=== PATIENT | male | born 1970 | race American Indian/Alaskan Native ===

== ENCOUNTER 2017-02-04 19:15 | Inpatient (IN) | payer OTHER ==
[2017-02-04 19:26] LABS: Basophils % (Auto) 0.3 % (0.0-1.8); Eosinophils % (Auto) 3.9 % (0.0-4.3); Hematocrit 34.3 % (35.5-45.6); Hemoglobin 10.8 gm/dl (11.8-15.2); Mean Corpuscular HGB Conc 32 % (32-34); Mean Corpuscular Volume 74 fl (84-94); Platelet Count 268 K/mm3 (140-440); Red Blood Count 4.63 M/mm3 (3.65-5.03); Red Cell Distribution Width 14.1 % (13.2-15.2)
[2017-02-04 19:28] LABS: Mean Corpuscular Hemoglobin 23 pg (28-32)
[2017-02-04 19:39] LABS: INR 1.08 (0.87-1.13); Partial Thromboplastin Time 32.8 Sec. (24.2-36.6)
--- NOTE | 2017-02-04 19:43 | Cat Scan Report ---
FINAL REPORT PROCEDURE: CT HEAD/BRAIN WO CON TECHNIQUE: Computerized tomography of the head was performed without contrast material. HISTORY: neuro deficits \T\lt; 6hrs or sx present upon awakening, prior intracranial hemorrhage COMPARISON: Head CT dated May 09, 2016 FINDINGS: Visualized portions of the paranasal sinuses and mastoid air cells are clear. No calvarial fracture is seen. Mild hyperdensity is seen in the right thalamus, in the region of prior hemorrhage. The density measurements suggest it is more likely calcification rather than hemorrhage. Subacute to chronic lacunar infarcts are seen in the basal ganglia and left thalamus. Cerebral ventricles are normal in size. No mass effect is seen. IMPRESSION: Likely idiopathic calcification is seen in the region of prior right thalamic hemorrhage. This appears too dense to be acute hemorrhage. Subacute to chronic small vessel ischemic changes in the brain have worsened since prior study. Critical results were discussed with Dr. Harper at 7:35 p.m. Eastern time on February 04, 2017.
[2017-02-04 20:03] LABS: Anion Gap 24 mmol/L; BUN/Creatinine Ratio 17.14; Blood Urea Nitrogen 12 mg/dL (9-20); Calcium 9.9 mg/dL (8.4-10.2); Carbon Dioxide 21 mmol/L (22-30); Chloride 98.6 mmol/L (98-107); Glucose 75 mg/dL (75-100); Potassium 3.3 mmol/L (3.6-5.0); Sodium 140 mmol/L (137-145)
[2017-02-04 20:18] LABS: Cholesterol 190 mg/dL (50-199); HDL Cholesterol 43 mg/dL (40-59); LDL Cholesterol,Direct 127 mg/dL (50-130); Triglycerides 100 mg/dL (2-149)
--- NOTE | 2017-02-04 20:57 | Admit Criteria Form ---
Admission Criteria Documentation: STROKE: HEMORRHAGIC Clinical Indications for Admission to Inpatient Care (Place 'X' for any and all applicable criteria): Admission is indicated for ANY ONE of the following(1)(2)(3)(4): [X ]I. Acute hemorrhagic (eg, intracerebral) stroke Extended stay beyond goal length of stay may be needed for(1)(2)(6) [ ]a) Surgical intervention (9) [ ]b) Major deficit [ ]c) Increased intracranial pressure [ ]d) Hydrocephalus [ ]e) Seizures [ ]f) Venous thromboembolism [ ]g) Severe electrolyte abnormality (eg, hypernatremia, hyponatremia) [ ]h) Hospital-acquired infection (eg, urinary tract infection, pneumonia) [ ]i) Comorbidities (heart failure, renal failure) The original [facility] content created by [email or web address] has been revised. The portions of the content which have been revised are identified through the use of italic text or in bold, and [facility] has neither reviewed nor approved the modified material. All other unmodified content is copyright [facility] [employer]. Please see references footnoted in the original [facility] [employer] edition 2016 Admission Criteria Met: Yes
[2017-02-04] MEDS ORDERED: REGLAN IV ONE (21:43)
[2017-02-04] MEDS ORDERED: APRESOLINE IV ONE ×2 (21:43→22:42)
--- NOTE | 2017-02-04 21:43 | Emergency Department Report ---
ED General Adult HPI - General Chief complaint: Neuro Symptoms/Deficit Stated complaint: NUMBNESS/LEFT SIDED Time Seen by Provider: 02/04/17 19:37 Source: patient, EMS, RN notes reviewed, old records reviewed Mode of arrival: Stretcher Limitations: Physical Limitation - History of Present Illness Initial comments: This is a 46-year-old male. He is previously unknown to me. Past medical history includes hemorrhagic right-sided stroke, residual left- sided deficits, ICD, status post temporary tracheostomy PEG tube, chronic sacral ulcer, hypertension. The patient presents to the ER with a complaint of left-sided numbness, possible weakness. It was initially presented that the patient endorses symptoms as being one hour and onset prior to arrival to the ER. Therefore, a code stroke was emergently called. When I went back to reevaluate the patient, he then indicated that it was not one hour prior to presentation, but rather the symptoms were present upon waking up, and he describes it as left-sided numbness, possible weakness, he is not certain. Given the patient has a history of hemorrhagic stroke, and could not give exact timeline for symptoms, TPA is contraindicated. The patient did complain of mild headache, however he denied neck pain, chest pain, abdominal pain, shortness of breath, denied irritative and obstructive urinary symptoms. A noncontrast CT scan of the brain suggested chronic calcification in the right thalamus, very small possibility of a small bleed. The CT scan was transmitted to a consulting neurosurgeon, Dr. Feng, who personally reviewed the CT scan, and was of the opinion that the CT scan findings were most likely secondary to calcification. He agreed to see the patient if indeed the patient was found to have a bleed, did recommend an MRI. The patient was found to be markedly hypertensive with a blood pressure in the 200s, and also complained of a headache. He was given Reglan for headache, and hydralazine for blood pressure. Nonspecific troponin leak is appreciated, patient not having chest pain, given possibility of bleed, aspirin is therefore contraindicated. The case was presented to the Hospital physician, Dr. Jaquez, who accepted the patient to his service for hypertensive urgency, subacute stroke/TIA, possible hemorrhagic CVA. -: Gradual Location: left, upper extremity, lower extremity Severity scale (0 -10): 0 Consistency: constant Improves with: none Worsens with: none Associated Symptoms: weakness. denies: confusion, chest pain, cough, diaphoresis, fever/chills - Related Data Home Medications Medication Instructions Recorded Confirmed Last Taken Clonidine 0.1 mg PO Q8HR 02/04/17 02/04/17 Unknown Previous Rx's Medication Instructions Recorded Last Taken Type Aspirin EC [Aspirin Enteric Coated 81 mg PO QDAY #30 tablet.dr 11/19/16 Unknown Rx TAB] Bisacodyl [Dulcolax suppos] 10 mg [place] QDAY PRN #20 supp.rect 11/19/16 Unknown Rx Docusate Sodium [Colace CAP] 100 mg PO BID #60 capsule 11/19/16 Unknown Rx Metoprolol Tartrate [Lopressor] 100 mg PO BID #120 tablet 11/19/16 Unknown Rx Modafinil [Provigil] 100 mg PO QAM #30 tablet 11/19/16 Unknown Rx Sennosides Oral Liqd [Senokot] 17.6 mg PO Q12HR PRN #30 oral.liqd 11/19/16 Unknown Rx hydrALAZINE [Apresoline TAB] 100 mg PO TID #90 tab 11/19/16 Unknown Rx Allergies Allergy/AdvReac Type Severity Reaction Status Date / Time No Known Allergies Allergy Verified 02/04/17 19:47 ED Review of Systems ROS: Stated complaint: NUMBNESS/LEFT SIDED Other details as noted in HPI Constitutional: denies: fever Eyes: denies: vision change ENT: denies: epistaxis Respiratory: denies: cough Cardiovascular: denies: chest pain Gastrointestinal: denies: abdominal pain Genitourinary: denies: urgency Musculoskeletal: other (chronic sacral ulcer) Skin: lesions Neurological: weakness, numbness Psychiatric: as per HPI ED Past Medical Hx - Past Medical History Previous Medical History?: Yes Hx Hypertension: Yes Hx CVA: Yes Hx Heart Attack/AMI: No Hx Congestive Heart Failure: No Hx Diabetes: Yes Hx Deep Vein Thrombosis: No Hx Pulmonary Embolism: No Hx Liver Disease: No Hx Renal Disease: No Hx Sickle Cell Disease: No Hx Arthritis: No Hx Seizures: No Hx Kidney Stones: No Hx Asthma: No Hx COPD: No Hx Tuberculosis: No Hx Dementia: No Hx HIV: No Additional medical history: prior tracheotomy; ulcer buttock - Surgical History Past Surgical History?: Yes Hx Coronary Stent: No Hx Open Heart Surgery: No Hx Pacemaker: Yes Hx Internal Defibrillator: No Hx Cholecystectomy: No Hx Appendectomy: No Hx Breast Surgery: No - Social History Smoking Status: Never Smoker - Medications Home Medications: Home Medications Medication Instructions Recorded Confirmed Last Taken Type Aspirin EC [Aspirin Enteric Coated 81 mg PO QDAY #30 tablet.dr 11/19/16 Unknown Rx TAB] Bisacodyl [Dulcolax suppos] 10 mg [place] QDAY PRN #20 supp.rect 11/19/16 02/04/17 Unknown Rx Docusate Sodium [Colace CAP] 100 mg PO BID #60 capsule 11/19/16 02/04/17 Unknown Rx Metoprolol Tartrate [Lopressor] 100 mg PO BID #120 tablet 11/19/16 02/04/17 Unknown Rx Modafinil [Provigil] 100 mg PO QAM #30 tablet 11/19/16 02/04/17 Unknown Rx Sennosides Oral Liqd [Senokot] 17.6 mg PO Q12HR PRN #30 oral.liqd 11/19/1602/04 Unknown Rx hydrALAZINE [Apresoline TAB] 100 mg PO TID #90 tab 11/19/16 02/04/17 Unknown Rx Clonidine 0.1 mg PO Q8HR 02/04/17 02/04/17 Unknown History ED Physical Exam - General Limitations: Physical Limitation General appearance: alert, in no apparent distress - Head Head exam: Present: atraumatic, normocephalic - Eye Eye exam: Present: normal appearance, EOMI. Absent: nystagmus - ENT ENT exam: Present: normal exam, normal orophraynx, mucous membranes moist, normal external ear exam - Neck Neck exam: Present: normal inspection, full ROM. Absent: tenderness, meningismus - Respiratory Respiratory exam: Present: normal lung sounds bilaterally. Absent: respiratory distress, wheezes, rales, rhonchi, stridor, chest wall tenderness, accessory muscle use, decreased breath sounds, prolonged expiratory - Cardiovascular Cardiovascular Exam: Present: regular rate, normal rhythm, normal heart sounds. Absent: bradycardia, tachycardia, irregular rhythm, systolic murmur, diastolic murmur, rubs, gallop - GI/Abdominal GI/Abdominal exam: Present: soft, normal bowel sounds. Absent: distended, tenderness, guarding, rebound, rigid, pulsatile mass - Rectal Rectal exam: Present: other (there is a 2 x 2 centimeters stage III sacral ulcer noted. There is no redness, pus or streaking) - Extremities Exam Extremities exam: Present: normal inspection, normal capillary refill, other ( there is 5/5 strength right upper extremity, right lower extremity. Sensation intact to light touch in for for extremities, although subjectively decreased in the left upper, left lower extremities. Chronic left upper and left lower extremity hemiparesis). Absent: pedal edema, joint swelling, calf tenderness - Back Exam Back exam: Present: normal inspection - Neurological Exam Neurological exam: Present: alert (there is no obvious facial droop. Extraocular movements are intact. Tongue is midline.), motor sensory deficit - Psychiatric Psychiatric exam: Present: normal affect, normal mood - Skin Skin exam: Present: warm, dry, intact, normal color. Absent: rash ED Course Vital Signs 02/04/17 02/04/17 02/04/17 19:55 21:31 21:55 Temperature 98.7 F Pulse Rate 77 80 72 Respiratory 16 16 Rate Blood Pressure 214/142 Blood Pressure 189/114 215/138 [Left] O2 Sat by Pulse 100 100 Oximetry 02/04/17 02/04/17 02/05/17 22:45 23:00 01:48 Temperature Pulse Rate 116 H 119 H 65 Respiratory 18 Rate Blood Pressure 175/108 Blood Pressure 156/95 [Left] O2 Sat by Pulse 100 Oximetry ED Medical Decision Making - Lab Data Result diagrams: 02/04/17 19:20 02/04/17 19:20 Vital Signs 02/04/17 02/04/17 19:55 21:31 Temperature 98.7 F Pulse Rate 77 80 Respiratory 16 16 Rate Blood Pressure 189/114 215/138 [Left] O2 Sat by Pulse 100 100 Oximetry Lab Results 02/04/17 02/04/17 02/04/17 Range/Units 19:20 19:20 19:20 WBC 8.0 (4.5-11.0) K/mm3 RBC 4.63 (3.65-5.03) M/mm3 Hgb 10.8 L (11.8-15.2) gm/dl Hct 34.3 L (35.5-45.6) % MCV 74 L (84-94) fl MCH 23 L (28-32) pg MCHC 32 (32-34) % RDW 14.1 (13.2-15.2) % Plt Count 268 (140-440) K/mm3 Lymph % (Auto) 41.4 H (13.4-35.0) % [place] % (Auto) 8.6 H (0.0-7.3) % Eos % (Auto) 3.9 (0.0-4.3) % Baso % (Auto) 0.3 (0.0-1.8) % Lymph # 3.3 (1.2-5.4) K/mm3 [place] # 0.7 (0.0-0.8) K/mm3 Eos # 0.3 (0.0-0.4) K/mm3 Baso # 0.0 (0.0-0.1) K/mm3 Seg Neutrophils % 45.8 (40.0-70.0) % Seg Neutrophils # 3.7 (1.8-7.7) K/mm3 PT 13.9 (12.2-14.9) Sec. INR 1.08 (0.87-1.13) APTT 32.8 (24.2-36.6) Sec. Thrombin Time (15.1-19.6) Sec. Sodium 140 (137-145) mmol/L Potassium 3.3 L (3.6-5.0) mmol/L Chloride 98.6 (98-107) mmol/L Carbon Dioxide 21 L (22-30) mmol/L Anion Gap 24 mmol/L BUN 12 (9-20) mg/dL Creatinine 0.7 L (0.8-1.5) mg/dL Estimated GFR > 60 ml/min BUN/Creatinine Ratio 17.14 % Glucose 75 (75-100) mg/dL Calcium 9.9 (8.4-10.2) mg/dL Troponin T 0.083 H (0.00-0.029) ng/mL Triglycerides 100 (2-149) mg/dL Cholesterol 190 (50-199) mg/dL LDL Cholesterol Direct 127 (50-130) mg/dL HDL Cholesterol 43 (40-59) mg/dL Cholesterol/HDL Ratio 4.41 % // Range/Units 19:20 WBC (4.5-11.0) K/mm3 RBC (3.65-5.03) M/mm3 Hgb (11.8-15.2) gm/dl Hct (35.5-45.6) % MCV (84-94) fl MCH (28-32) pg MCHC (32-34) % RDW (13.2-15.2) % Plt Count (140-440) K/mm3 Lymph % (Auto) (13.4-35.0) % [place] % (Auto) (0.0-7.3) % Eos % (Auto) (0.0-4.3) % Baso % (Auto) (0.0-1.8) % Lymph # (1.2-5.4) K/mm3 [place] # (0.0-0.8) K/mm3 Eos # (0.0-0.4) K/mm3 Baso # (0.0-0.1) K/mm3 Seg Neutrophils % (40.0-70.0) % Seg Neutrophils # (1.8-7.7) K/mm3 PT (12.2-14.9) Sec. INR (0.87-1.13) APTT (24.2-36.6) Sec. Thrombin Time 15.7 (15.1-19.6) Sec. Sodium (137-145) mmol/L Potassium (3.6-5.0) mmol/L Chloride (98-107) mmol/L Carbon Dioxide (22-30) mmol/L Anion Gap mmol/L BUN (9-20) mg/dL Creatinine (0.8-1.5) mg/dL Estimated GFR ml/min BUN/Creatinine Ratio % Glucose (75-100) mg/dL Calcium (8.4-10.2) mg/dL Troponin T (0.00-0.029) ng/mL Triglycerides (2-149) mg/dL Cholesterol (50-199) mg/dL LDL Cholesterol Direct (50-130) mg/dL HDL Cholesterol (40-59) mg/dL Cholesterol/HDL Ratio % - EKG Data -: EKG Interpreted by In EKG shows normal: sinus rhythm Rate: normal - EKG Data When compared to previous EKG there are: no significant change Interpretation: no acute changes 02/04/17 21:54 normal sinus, 66 bpm, right axis deviation, poor R-wave progression, not morphologically consistent with STEMI, appears unchanged compared to prior EKG from November 2016 - Radiology Data Radiology results: report reviewed, image reviewed interpreted by me: X-ray of the chest negative for acute disease, left ICD is demonstrated. Noncontrast CT scan of the brain demonstrates mild hyperintensity in the right thalamus, region of prior hemorrhage. Density measurements suggest it is more likely calcification rather than hemorrhage. Subacute to chronic recurrent infarcts are noted. Likely idiopathic calcification noted in the region of a prior right colonic hemorrhage. Appears to dense to be an acute hemorrhage. Subacute to chronic small vessel ischemic changes noted in the brain. Critical care attestation.: If time is entered above; I have spent that time in minutes in the direct care of this critically ill patient, excluding procedure time. ED Disposition Clinical Impression: Elevated troponin I level, Hypertensive urgency, Left sided numbness Disposition: OP ADMITTED IP TO THIS HOSP Is pt being admited?: Yes Condition: Good
--- NOTE | 2017-02-04 21:54 | XRay Report ---
FINAL REPORT PROCEDURE: XR CHEST 1V AP TECHNIQUE: Chest radiograph anteroposterior view. CPT 01395 HISTORY: tia/ pna/ LEFT SIDE NUMBNESS, LT SIDE FACIAL DROOPING COMPARISON: No prior studies are available for comparison. FINDINGS: Heart: Normal. Mediastinum/Vessels: Normal. Lungs/Pleural space: Normal. Bony thorax: No acute osseous abnormality. Life support devices: Cardiac device leads are directed towards the right atrial appendage and right ventricular apex. IMPRESSION: No acute cardiopulmonary abnormality.
--- NOTE | 2017-02-04 22:03 | History and Physical Report ---
History of Present Illness Chief complaint: I feel weak on my left side History of present illness: 46 YO Male with HTN, CVA Left HP, DM, Sacral Ulcer presents to ED for evaluation. Pt states that he experienced acute onset Left sided weakness 1 hour prior to presentation to ED. Pt states that when he awoke from sleep he felt weak on the left side of his body. Pt denies fever, chills, CP, Palpitations, NVD, Syncope, Trauma, Falls, seizure, loss of bowel/bladder continence, or recent ill contacts. Pt seen and evaluated in ED. A noncontrast CT scan of the brain suggested chronic calcification in the right thalamus, very small possibility of a small bleed. The CT scan was transmitted to and reviewed by consulting neurosurgeon, Dr. Feng. repeat brain imaging in AM is recommended. No surgical intervention at this time. Past History Past Medical History: diabetes, hypertension, stroke Past Surgical History: Other (pacemaker) Social history: single, lives with family. denies: smoking, alcohol abuse, prescription drug abuse Family history: diabetes, hypertension Medications and Allergies Allergies Allergy/AdvReac Type Severity Reaction Status Date / Time No Known Allergies Allergy Verified 02/04/17 19:47 Home Medications Medication Instructions Recorded Confirmed Last Taken Type Aspirin EC [Aspirin Enteric Coated 81 mg PO QDAY #30 tablet. 11/19/16 Unknown Rx TAB] Bisacodyl [Dulcolax suppos] 10 mg [place] QDAY PRN #20 supp.rect 11/19/16 02/04/17 Unknown Rx Docusate Sodium [Colace CAP] 100 mg PO BID #60 capsule 11/19/16 02/04/17 Unknown Rx Metoprolol Tartrate [Lopressor] 100 mg PO BID #120 tablet 11/19/16 02/04/17 Unknown Rx Modafinil [Provigil] 100 mg PO QAM #30 tablet 11/19/16 02/04/17 Unknown Rx Sennosides Oral Liqd [Senokot] 17.6 mg PO Q12HR PRN #30 oral.liqd 11/19/1602/04 Unknown Rx hydrALAZINE [Apresoline TAB] 100 mg PO TID #90 tab 11/19/16 02/04/17 Unknown Rx Clonidine 0.1 mg PO Q8HR 02/04/17 02/04/17 Unknown History Review of Systems All systems: negative Constitutional: weakness Exam - Constitutional Vitals: Temp Pulse Resp BP Pulse Ox 98.7 F 72 16 214/142 100 02/04/17 19:55 02/04/17 21:55 02/04/17 21:31 02/04/17 21:55 02/04/17 21:31 General appearance: Present: mild distress - EENT Eyes: Present: PERRL ENT: hearing intact, clear oral mucosa - Neck Neck: Present: supple, normal ROM - Respiratory Respiratory effort: normal Respiratory: bilateral: CTA - Cardiovascular Heart Sounds: Present: S1 & S2. Absent: rub, click - Extremities Extremities: pulses symmetrical, No edema Peripheral Pulses: within normal limits - Abdominal General gastrointestinal: Present: soft, non-tender, non-distended, normal bowel sounds Male genitourinary: Present: normal - Integumentary Integumentary: Present: clear, dry, decreased turgor (sacral ulcer) - Musculoskeletal Musculoskeletal: left sided weakness - Psychiatric Psychiatric: appropriate mood/affect, intact judgment & insight - Neurologic Neurologic: CNII-XII intact, moves all extremities, no gait normal Results - Labs CBC & Chem 7: 02/04/17 19:20 02/04/17 19:20 Labs: Abnormal lab results 02/04/17 02/04/17 Range/Units 19:20 19:20 Hgb 10.8 L (11.8-15.2) gm/dl Hct 34.3 L (35.5-45.6) % MCV 74 L (84-94) fl MCH 23 L (28-32) pg Lymph % (Auto) 41.4 H (13.4-35.0) % [place] % (Auto) 8.6 H (0.0-7.3) % Potassium 3.3 L (3.6-5.0) mmol/L Carbon Dioxide 21 L (22-30) mmol/L Creatinine 0.7 L (0.8-1.5) mg/dL Troponin T 0.083 H (0.00-0.029) ng/mL Assessment and Plan - Patient Problems (1) Hemorrhagic stroke Current Visit: Yes Status: Acute Plan to address problem: Neurosurgery consulted, repeat CT head in AM. BP control overnight, systolic between 160-180, supportive care. PT, OT. Speech therapy, Case management consulted at admission for D/C planning to SNF. Please send out today. (2) Dysphagia Current Visit: Yes Status: Acute Qualifiers: Dysphagia type: D Plan to address problem: Speech consulted, (3) Diabetes Current Visit: Yes Status: Acute Qualifiers: Diabetes mellitus type: D Diabetes mellitus complication status: D Diabetes mellitus complication detail: D Diabetic retinopathy severity: D Proliferative retinopathy type: P Diabetes mellitus macular edema: D Diabetes mellitus watermelon inspector insulin use: D Laterality: L Chronic kidney disease stage: C Plan to address problem: ADA diet, insulin accu check (4) Hypertensive urgency Current Visit: Yes Status: Acute Plan to address problem: cardene drip, monitor BP as pre routine. (5) DVT prophylaxis Current Visit: Yes Status: Acute
[2017-02-04 22:16] LABS: Bilirubin,Urine NEG (Negative); Blood,Urine SM (Negative); Ketones,Urine 20 mg/dL (Negative); Leukocyte Esterase,Urine NEG (Negative); Mucus,Urine FEW /HPF; Nitrite,Urine NEG (Negative); Urobilinogen,Urine < 2.0 mg/dL (<2.0)
[2017-02-04] MEDS ORDERED: MAGNESIUM SULFATE 2GM/50ML 2 GM/50 ML BAG IV ONE (22:17)
[2017-02-04] MEDS ORDERED: K-DUR PO ONE (22:17)
[2017-02-04] MEDS ORDERED: MILK OF MAGNESIA PO PRN ×2 (22:43)
[2017-02-04] MEDS ORDERED: DULCOLAX PR PRN ×2 (22:43)
[2017-02-04] MEDS ORDERED: PHENERGAN PR PRN (22:43)
[2017-02-04] MEDS ORDERED: ALUM-MAG HYDROX-SIMETH 200-200-20MG/5ML PO PRN ×2 (22:43)
[2017-02-04] MEDS ORDERED: TYLENOL PO PRN (22:43)
[2017-02-04] MEDS ORDERED: TYLENOL PR PRN (22:43)
[2017-02-04] MEDS ORDERED: ZOFRAN IV PRN (22:43)
[2017-02-04] MEDS: KCL 10MEQ/100ML 10 MEQ/100 ML BAG IV SCH (22:45)
[2017-02-04] MEDS ORDERED: SENOKOT PO PRN (22:49)
[2017-02-04] MEDS ORDERED: CARDENE 50 MG in NACL 0.9% 250ML 230 ML IV SCH (23:00)
[2017-02-04] MEDS ORDERED: POTASSIUM CHLORIDE FEEDTUBE ONE (23:45)
[2017-02-04] MEDS ORDERED: NACL 0.9% 1000 ML 1,000 ML ONE (23:58)
[2017-02-05] MEDS ORDERED: NACL 0.9% 1000 ML 1,000 ML IV ONE (00:01)
[2017-02-05] MEDS ORDERED: MAGNESIUM SULFATE 2GM/50ML 2 GM/50 ML BAG IV ONE (00:47)
[2017-02-05] MEDS: KCL 10MEQ/100ML 10 MEQ/100 ML BAG IV SCH (00:57)
[2017-02-05] MEDS: PROVIGIL PO SCH (11:43)
[2017-02-05] MEDS: LOPRESSOR PO SCH ×2 (11:43→22:06)
--- NOTE | 2017-02-05 14:12 | Progress Note ---
Subjective Date of service: 02/05/17 Interval history: MD notified of admission and CT head reviewed. No evidence of likely ICH, and definitely no role for neurosurgical intervention at this writing. I recommend formal Neurology evaluation given prior history of known strokes and current TIA symptoms. Call with any questions or concerns. Objective - Vital Sign Vital Signs - 12hr 02/05/17 02/05/17 02/05/17 02:21 02:30 02:41 Temperature Pulse Rate 104 H 106 H 103 H Respiratory 15 22 25 H Rate Blood Pressure 183/122 161/94 161/94 O2 Sat by Pulse 99 100 100 Oximetry 02/05/17 02/05/17 02/05/17 02:51 03:00 03:11 Temperature Pulse Rate 105 H 108 H 112 H Respiratory 25 H 25 H 24 Rate Blood Pressure 183/122 148/85 148/85 O2 Sat by Pulse 100 100 99 Oximetry 02/05/17 02/05/17 02/05/17 03:21 03:30 03:41 Temperature Pulse Rate 114 H 118 H 114 H Respiratory 26 H 22 31 H Rate Blood Pressure 147/81 156/92 156/92 O2 Sat by Pulse 99 99 99 Oximetry 02/05/17 02/05/17 02/05/17 03:51 04:00 04:11 Temperature Pulse Rate 106 H 112 H 103 H Respiratory 29 H 28 H 26 H Rate Blood Pressure 150/98 150/98 148/91 O2 Sat by Pulse 99 98 98 Oximetry 02/05/17 02/05/17 02/05/17 04:21 04:30 04:41 Temperature Pulse Rate 111 H 108 H 101 H Respiratory 25 H 27 H 26 H Rate Blood Pressure 129/85 132/84 132/84 O2 Sat by Pulse 97 98 98 Oximetry 02/05/17 02/05/17 02/05/17 04:51 05:00 05:11 Temperature Pulse Rate 112 H 81 94 H Respiratory 21 20 21 Rate Blood Pressure 136/83 140/74 140/74 O2 Sat by Pulse 98 98 98 Oximetry 02/05/17 02/05/17 02/05/17 05:21 05:30 05:41 Temperature Pulse Rate 87 90 98 H Respiratory 19 20 26 H Rate Blood Pressure 128/87 134/85 134/85 O2 Sat by Pulse 99 99 99 Oximetry 02/05/17 02/05/17 02/05/17 05:51 06:00 06:15 Temperature Pulse Rate 106 H 121 H 100 H Respiratory 21 23 26 H Rate Blood Pressure 138/87 159/99 145/89 O2 Sat by Pulse 98 99 98 Oximetry 02/05/17 02/05/17 02/05/17 06:30 06:45 07:00 Temperature Pulse Rate 104 H 106 H 119 H Respiratory 26 H 27 H 23 Rate Blood Pressure 150/87 146/86 140/91 O2 Sat by Pulse 98 98 99 Oximetry 02/05/17 02/05/17 02/05/17 07:15 07:30 07:45 Temperature Pulse Rate 107 H 119 H 115 H Respiratory 25 H 21 28 H Rate Blood Pressure 148/90 147/94 149/93 O2 Sat by Pulse 98 98 98 Oximetry 02/05/17 02/05/17 02/05/17 08:00 08:15 08:30 Temperature Pulse Rate 117 H 123 H 117 H Respiratory 25 H 20 20 Rate Blood Pressure 141/92 142/95 146/92 O2 Sat by Pulse 99 98 98 Oximetry 02/05/17 02/05/17 02/05/17 08:45 09:00 09:15 Temperature Pulse Rate 110 H 105 H 113 H Respiratory 21 26 H 23 Rate Blood Pressure 142/91 147/91 162/96 O2 Sat by Pulse 97 98 99 Oximetry 02/05/17 02/05/17 02/05/17 09:30 09:45 10:37 Temperature Pulse Rate 108 H 98 H 118 H Respiratory 28 H 32 H Rate Blood Pressure 146/96 146/96 153/105 O2 Sat by Pulse 99 99 Oximetry 02/05/17 02/05/17 02/05/17 10:45 11:00 11:15 Temperature Pulse Rate 109 H 110 H 111 H Respiratory 26 H 25 H 26 H Rate Blood Pressure 158/104 138/84 144/84 O2 Sat by Pulse 97 99 99 Oximetry 02/05/17 02/05/17 02/05/17 11:30 11:43 11:45 Temperature Pulse Rate 112 H 111 H 109 H Respiratory 27 H 22 Rate Blood Pressure 152/95 144/84 154/100 O2 Sat by Pulse 99 99 Oximetry 02/05/17 02/05/17 02/05/17 12:00 12:14 13:53 Temperature 98.6 F Pulse Rate 92 H Respiratory 16 16 Rate Blood Pressure 131/89 O2 Sat by Pulse 100 100 Oximetry - Laboratory Findings CBC and BMP: 02/04/17 19:20 02/04/17 19:20
--- NOTE | 2017-02-05 14:43 | Cat Scan Report ---
CT HEAD WITHOUT CONTRAST: HISTORY: Stroke. Compared to 02/04/17. Mild nonspecific chronic white matter changes are again noted and unchanged. 1 cm chronic lacunar infarct in the right basal ganglia is unchanged. There is linear hyperdensity in the right basal ganglia as well probably representing residual hemorrhagic products from the right thalamic hemorrhage seen on 05/09/16 exam. No new areas of hemorrhage are appreciated. No large area of acute ischemia is identified. The mastoid air cells and visualized portions of the sinuses are normal. IMPRESSION: Chronic findings as outlined above which are unchanged since yesterday's exam.
--- NOTE | 2017-02-05 15:49 | Progress Note ---
Assessment and Plan Assessment and plan: Patient is 46 yo man with h/o hemorrhagic CVA with left hemiparesis, htn, dm2 and pressure ulcer who presents with worsening left sided weakness. CT head likely idiopathic calcification is seen in the region of prior right thalamic hemorrhage, this appears too dense to be acute hemorrhage. Subacute to chronic small vessel ischemic changes in the brain have worsened since prior study. D/w Neurosurgery, he request MRI. -New stroke vs Worsening old stroke: get MRI -Accelerated HTN, improved, continue to monitor -DM2, watch for hypoglycemia: use ssi -DVT: scd once ich ruled out History Interval history: Patient seen and examined. Follow up on left-sided weakness, overnight uneventful. No cp, sob, n/v or severe headaches. Imaging, old records, testing, labs, nursing notes reviewed. Hospitalist Physical - Physical exam Narrative exam: GEN: WDWN, NAD, AWAKE, ALERT, ORIENTATED x 3 CVS: RRR, NORMAL S1S2 LUNGS/CHEST: CTA B, NORMAL CHEST EXPANSION B, GOOD AIR ENTRY B ABD: SOFT NTND, GBS, NO REBOUND OR GUARDING EXT/SKIN: NO SIGNIFICANT EDEMA OR RASH NEURO: CN 2-12 GROSSLY INTACT, left hemiparesis PSY: CALM - Constitutional Vitals: Temp Pulse Resp BP Pulse Ox 98.6 F 74 16 155/103 83 L 02/05/17 12:14 02/05/17 15:00 02/05/17 15:00 02/05/17 15:00 02/05/17 14:45 Results - Labs CBC & Chem 7: 02/04/17 19:20 02/04/17 19:20 Labs: Laboratory Last Values WBC 8.0 K/mm3 (4.5-11.0) 02/04/17 19:20 RBC 4.63 M/mm3 (3.65-5.03) 02/04/17 19:20 Hgb 10.8 gm/dl (11.8-15.2) L 02/04/17 19:20 Hct 34.3 % (35.5-45.6) L 02/04/17 19:20 MCV 74 fl (84-94) L 02/04/17 19:20 MCH 23 pg (28-32) L 02/04/17 19:20 MCHC 32 % (32-34) 02/04/17 19:20 RDW 14.1 % (13.2-15.2) 02/04/17 19:20 Plt Count 268 K/mm3 (140-440) 02/04/17 19:20 Lymph % (Auto) 41.4 % (13.4-35.0) H 02/04/17 19:20 [place] % (Auto) 8.6 % (0.0-7.3) H 02/04/17 19:20 Eos % (Auto) 3.9 % (0.0-4.3) 02/04/17 19:20 Baso % (Auto) 0.3 % (0.0-1.8) 02/04/17 19:20 Lymph # 3.3 K/mm3 (1.2-5.4) 02/04/17 19:20 [place] # 0.7 K/mm3 (0.0-0.8) 02/04/17 19:20 Eos # 0.3 K/mm3 (0.0-0.4) 02/04/17 19:20 Baso # 0.0 K/mm3 (0.0-0.1) 02/04/17 19:20 Seg Neutrophils % 45.8 % (40.0-70.0) 02/04/17 19:20 Seg Neutrophils # 3.7 K/mm3 (1.8-7.7) 02/04/17 19:20 PT 13.9 Sec. (12.2-14.9) 02/04/17 19:20 INR 1.08 (0.87-1.13) 02/04/17 19:20 APTT 32.8 Sec. (24.2-36.6) 02/04/17 19:20 Thrombin Time 15.7 Sec. (15.1-19.6) 02/04/17 19:20 Sodium 140 mmol/L (137-145) 02/04/17 19:20 Potassium 3.3 mmol/L (3.6-5.0) L 02/04/17 19:20 Chloride 98.6 mmol/L (98-107) 02/04/17 19:20 Carbon Dioxide 21 mmol/L (22-30) L 02/04/17 19:20 Anion Gap 24 mmol/L 02/04/17 19:20 BUN 12 mg/dL (9-20) 02/04/17 19:20 Creatinine 0.7 mg/dL (0.8-1.5) L 02/04/17 19:20 Estimated GFR > 60 ml/min 02/04/17 19:20 BUN/Creatinine Ratio 17.14 % 02/04/17 19:20 Glucose 75 mg/dL (75-100) 02/04/17 19:20 Calcium 9.9 mg/dL (8.4-10.2) 02/04/17 19:20 Troponin T 0.083 ng/mL (0.00-0.029) H 02/04/17 19:20 Triglycerides 100 mg/dL (2-149) 02/04/17 19:20 Cholesterol 190 mg/dL (50-199) 02/04/17 19:20 LDL Cholesterol Direct 127 mg/dL (50-130) 02/04/17 19:20 HDL Cholesterol 43 mg/dL (40-59) 02/04/17 19:20 Cholesterol/HDL Ratio 4.41 % 02/04/17 19:20 Urine Color Yellow (Yellow) 02/04/17 22:00 Urine Turbidity Clear (Clear) 02/04/17 22:00 Urine pH 5.0 (5.0-7.0) 02/04/17 22:00 Ur Specific [place] 1.018 (1.003-1.030) 02/04/17 22:00 Urine Protein 30 mg/dl mg/dL (Negative) 02/04/17 22:00 Urine Glucose (UA) Neg mg/dL (Negative) 02/04/17 22:00 Urine Ketones 20 mg/dL (Negative) 02/04/17 22:00 Urine Blood Sm (Negative) 02/04/17 22:00 Urine Nitrite Neg (Negative) 02/04/17 22:00 Urine Bilirubin Neg (Negative) 02/04/17 22:00 Urine Urobilinogen < 2.0 mg/dL (<2.0) 02/04/17 22:00 Ur Leukocyte Esterase Neg (Negative) 02/04/17 22:00 Urine WBC (Auto) 1.0 /HPF (0.0-6.0) 02/04/17 22:00 Urine RBC (Auto) 5.0 /HPF (0.0-6.0) 02/04/17 22:00 Urine Mucus Few /HPF 02/04/17 22:00
[2017-02-05] MEDS ORDERED: D50W (25GM) IV PRN (16:19)
[2017-02-05] MEDS: NOVOLOG SUB-Q SCH ×2 (17:32→22:05)
[2017-02-05] MEDS: COZAAR PO SCH (18:47)
[2017-02-06] MEDS: APRESOLINE IV PRN ×2 (01:28→05:51)
[2017-02-06] MEDS ORDERED: NORMODYNE IV PRN (07:37)
[2017-02-06] MEDS: NOVOLOG SUB-Q SCH ×4 (08:11→22:23)
[2017-02-06] MEDS ORDERED: NORVASC PO SCH (10:00)
--- NOTE | 2017-02-06 10:15 | Progress Note ---
Assessment and Plan Assessment and plan: Patient is 46 yo man with h/o hemorrhagic CVA with left hemiparesis, htn, dm2 and pressure ulcer who presents with worsening left sided weakness. CT head likely idiopathic calcification is seen in the region of prior right thalamic hemorrhage, this appears too dense to be acute hemorrhage. Subacute to chronic small vessel ischemic changes in the brain have worsened since prior study. D/w Neurosurgery, he request MRI. -New stroke vs Worsening old stroke: get MRI -Accelerated HTN, improved, continue to monitor -DM2, watch for hypoglycemia: use ssi -DVT: scd once ich ruled out MRI still pending Overnight bp uncontrolled, adjust antihypertensive but not aggressive, added norvasc Carotid dopplers pending. Hopefully d/c tomorrow if bp ok History Interval history: Patient seen and examined. Follow up on left-sided weakness, overnight uneventful. No cp, sob, n/v or severe headaches. Imaging, old records, testing, labs, nursing notes reviewed. Hospitalist Physical - Physical exam Narrative exam: GEN: WDWN, NAD, AWAKE, ALERT, ORIENTATED x 3 CVS: RRR, NORMAL S1S2 LUNGS/CHEST: CTA B, NORMAL CHEST EXPANSION B, GOOD AIR ENTRY B ABD: SOFT NTND, GBS, NO REBOUND OR GUARDING EXT/SKIN: NO SIGNIFICANT EDEMA OR RASH NEURO: CN 2-12 GROSSLY INTACT, left hemiparesis, dysarthria but no new findings PSY: CALM - Constitutional Vitals: Temp Pulse Resp BP Pulse Ox 98.2 F 97 H 20 153/93 99 02/06/17 08:20 02/06/17 08:20 02/06/17 08:20 02/06/17 08:20 02/06/17 08:20 Results - Labs CBC & Chem 7: 02/04/17 19:20 02/04/17 19:20 Labs: Laboratory Last Values WBC 8.0 K/mm3 (4.5-11.0) 02/04/17 19:20 RBC 4.63 M/mm3 (3.65-5.03) 02/04/17 19:20 Hgb 10.8 gm/dl (11.8-15.2) L 02/04/17 19:20 Hct 34.3 % (35.5-45.6) L 02/04/17 19:20 MCV 74 fl (84-94) L 02/04/17 19:20 MCH 23 pg (28-32) L 02/04/17 19:20 MCHC 32 % (32-34) 02/04/17 19:20 RDW 14.1 % (13.2-15.2) 02/04/17 19:20 Plt Count 268 K/mm3 (140-440) 02/04/17 19:20 Lymph % (Auto) 41.4 % (13.4-35.0) H 02/04/17 19:20 [place] % (Auto) 8.6 % (0.0-7.3) H 02/04/17 19:20 Eos % (Auto) 3.9 % (0.0-4.3) 02/04/17 19:20 Baso % (Auto) 0.3 % (0.0-1.8) 02/04/17 19:20 Lymph # 3.3 K/mm3 (1.2-5.4) 02/04/17 19:20 [place] # 0.7 K/mm3 (0.0-0.8) 02/04/17 19:20 Eos # 0.3 K/mm3 (0.0-0.4) 02/04/17 19:20 Baso # 0.0 K/mm3 (0.0-0.1) 02/04/17 19:20 Seg Neutrophils % 45.8 % (40.0-70.0) 02/04/17 19:20 Seg Neutrophils # 3.7 K/mm3 (1.8-7.7) 02/04/17 19:20 PT 13.9 Sec. (12.2-14.9) 02/04/17 19:20 INR 1.08 (0.87-1.13) 02/04/17 19:20 APTT 32.8 Sec. (24.2-36.6) 02/04/17 19:20 Thrombin Time 15.7 Sec. (15.1-19.6) 02/04/17 19:20 Sodium 140 mmol/L (137-145) 02/04/17 19:20 Potassium 3.3 mmol/L (3.6-5.0) L 02/04/17 19:20 Chloride 98.6 mmol/L (98-107) 02/04/17 19:20 Carbon Dioxide 21 mmol/L (22-30) L 02/04/17 19:20 Anion Gap 24 mmol/L 02/04/17 19:20 BUN 12 mg/dL (9-20) 02/04/17 19:20 Creatinine 0.7 mg/dL (0.8-1.5) L 02/04/17 19:20 Estimated GFR > 60 ml/min 02/04/17 19:20 BUN/Creatinine Ratio 17.14 % 02/04/17 19:20 Glucose 75 mg/dL (75-100) 02/04/17 19:20 POC Glucose 107 (70-105) H 02/06/17 06:42 Calcium 9.9 mg/dL (8.4-10.2) 02/04/17 19:20 Troponin T 0.083 ng/mL (0.00-0.029) H 02/04/17 19:20 Triglycerides 100 mg/dL (2-149) 02/04/17 19:20 Cholesterol 190 mg/dL (50-199) 02/04/17 19:20 LDL Cholesterol Direct 127 mg/dL (50-130) 02/04/17 19:20 HDL Cholesterol 43 mg/dL (40-59) 02/04/17 19:20 Cholesterol/HDL Ratio 4.41 % 02/04/17 19:20 Urine Color Yellow (Yellow) 02/04/17 22:00 Urine Turbidity Clear (Clear) 02/04/17 22:00 Urine pH 5.0 (5.0-7.0) 02/04/17 22:00 Ur Specific [place] 1.018 (1.003-1.030) 02/04/17 22:00 Urine Protein 30 mg/dl mg/dL (Negative) 02/04/17 22:00 Urine Glucose (UA) Neg mg/dL (Negative) 02/04/17 22:00 Urine Ketones 20 mg/dL (Negative) 02/04/17 22:00 Urine Blood Sm (Negative) 02/04/17 22:00 Urine Nitrite Neg (Negative) 02/04/17 22:00 Urine Bilirubin Neg (Negative) 02/04/17 22:00 Urine Urobilinogen < 2.0 mg/dL (<2.0) 02/04/17 22:00 Ur Leukocyte Esterase Neg (Negative) 02/04/17 22:00 Urine WBC (Auto) 1.0 /HPF (0.0-6.0) 02/04/17 22:00 Urine RBC (Auto) 5.0 /HPF (0.0-6.0) 02/04/17 22:00 Urine Mucus Few /HPF 02/04/17 22:00
--- NOTE | 2017-02-06 11:15 | Event Note ---
Date: 02/06/17 I attempted to see this patient between my scheduled coverage time of 8 AM-12 PM but they were not present in the floor room. I am not drafter directional survey again until when I can return to staff in consultation however can obtain consult from weekend drafter directional survey as available.
[2017-02-06] MEDS: COZAAR PO SCH (11:24)
[2017-02-06] MEDS: LOPRESSOR PO SCH ×2 (11:24→22:23)
[2017-02-06] MEDS: PROVIGIL PO SCH (11:25)
[2017-02-07] MEDS: APRESOLINE IV PRN (04:26)
[2017-02-07] MEDS ORDERED: NORVASC PO SCH (08:39)
[2017-02-07] MEDS: NOVOLOG SUB-Q SCH ×3 (08:58→18:00)
[2017-02-07] MEDS: LOPRESSOR PO SCH (09:22)
[2017-02-07] MEDS: COZAAR PO SCH (09:22)
--- NOTE | 2017-02-07 10:52 | Discharge Summary ---
Providers - Providers Date of Admission: 02/04/17 22:43 Date of discharge: 02/07/17 Attending physician: HAMLET BUCHANAN 02/05/17 08:05 Consult to Physician [CONS] Routine Consulting Provider: DIANE MULLINS Reason For Exam: [facility] consult to:: Ping LINK Notified:: y Was contact made?: Yes If yes, spoke with:: juventino Vincent Time called:: 09:25 02/05/17 15:41 Consult to Physician [CONS] Routine Consulting Provider: NAEL GREEN Reason For Exam: [facility] consult to:: Simran LINK Notified:: DR. GREEN Phone number called:: [phone] Was contact made?: Yes If yes, spoke with:: DR. GREEN Time called:: 09:34 Comment:: JULI SPOKE WITH MD Primary care physician: MATERIALS SCIENTIST Hospitalization Condition: Good Hospital course: Patient is 46 yo man with h/o hemorrhagic CVA with left hemiparesis, htn, dm2 and pressure ulcer who presents with worsening left sided weakness. CT head likely idiopathic calcification is seen in the region of prior right thalamic hemorrhage, this appears too dense to be acute hemorrhage. Subacute to chronic small vessel ischemic changes in the brain have worsened since prior study. D/w Neurosurgery, he request MRI==>not done due to ppm. -Acute CVA with infarct, no ICH per neurosurgery -Accelerated HTN, improved, continue to monitor, do not be too aggressive in lowering bp, don't want to extend infarct -DM2, watch for hypoglycemia: use ssi -DVT: scd once ich ruled out Overnight bp uncontrolled, adjust antihypertensive but not aggressive, added norvasc Carotid dopplers negative Disposition: DC/TX HOME UNDER HOME HEALTH Time spent for discharge: 32 minutes Core Measure Documentation - Palliative Care Palliative Care/ Comfort Measures: Not Applicable - Core Measures Any of the following diagnoses?: stroke - VTE Discharge Requirements Deep Vein Thrombosis/Pulmonary Embolism Present on Admission: No Has pt received <5 days of overlap therapy or INR<2.0: No Anticoagulant overlap therapy prescribed at discharge: No Contraindication No Overlap Therapy order at DC: Not Indicated - Stroke Discharge Requirements Statin for LDL = or >70 mg/dl on DC: Yes Anticoag for atrial fib/atrial flutter: Not Applicable Antithrombotic for ischemic stroke: Yes Exam - Physical Exam Narrative exam: GEN: WDWN, NAD, AWAKE, ALERT, ORIENTATED x 3 CVS: RRR, NORMAL S1S2 LUNGS/CHEST: CTA B, NORMAL CHEST EXPANSION B, GOOD AIR ENTRY B ABD: SOFT NTND, GBS, NO REBOUND OR GUARDING EXT/SKIN: NO SIGNIFICANT EDEMA OR RASH NEURO: CN 2-12 GROSSLY INTACT, left hemiparesis, dysarthria but no new findings PSY: CALM - Constitutional Vitals: Temp Pulse Resp BP Pulse Ox 98.2 F 78 16 164/98 97 02/07/17 08:00 02/07/17 08:00 02/07/17 08:00 02/07/17 09:22 02/07/17 08:00 Plan Activity: no driving until cleared by PCP, up only with assistance, other (no strenous activites until cleared by PCP. ) Diet: low salt Follow up with: PRIMARY CARE, [Primary Care Provider] - 3-5 Days Prescriptions: AtorvaSTATin [Lipitor] 40 mg PO QHS #30 tablet amLODIPine [Norvasc] 5 mg PO QDAY #30 tablet Aspirin [Aspirin BABY CHEW TAB] 81 mg PO QDAY #30 tab.chew Losartan [Cozaar] 25 mg PO QDAY #30 tablet Metoprolol [Lopressor TAB] 100 mg PO BID #60 tablet
[2017-02-07] MEDS: PROVIGIL PO SCH (11:45)
[2017-02-07 16:07] VITALS: BP 166/100
== END 2017-02-07 17:15 | disposition home health service (06) | DRG 65 ==
LOC: ED 19:15 → CC1 22:43 → 3A 02-05 15:57
PROVIDERS: ADMIT Internal Medicine; ATTEND Internal Medicine
DX: I63.9 Cerebral infarction, unspecified (principal); I16.1 Hypertensive emergency; I69.254 Hemiplegia and hemiparesis following other nontraumatic intracranial hemorrhage affecting left non-dominant side; L98.429 Non-pressure chronic ulcer of back with unspecified severity; E11.9 Type 2 diabetes mellitus without complications; Z93.0 Tracheostomy status; I10 Essential (primary) hypertension; Z83.3 Family history of diabetes mellitus; Z82.49 Family history of ischemic heart disease and other diseases of the circulatory system; Z95.0 Presence of cardiac pacemaker; R13.10 Dysphagia, unspecified
CPT/HCPCS: 36415; 70450; 71010; 80048; 80061; 81001; 82962; 84484; 85025; 85610; 85670; 85730; 87045; 87493; 93005; 93010; 93880; J0360; J1815; J2765; J3475; J3480; J7030; J7050

== ENCOUNTER 2017-04-30 12:23 | Inpatient (IN) | payer MEDICAID ==
--- NOTE | 2017-04-30 14:04 | Cat Scan Report ---
CT HEAD WITHOUT CONTRAST: HISTORY: CVA. Compared to 02/05/17. Chronic lacunar infarct in the right basal ganglia is unchanged. There is a linear area of increased density in the thalamus with internal density measuring 62 Hounsfield units. This is essentially unchanged since the previous exam. This probably represents calcifications although a small hemorrhage is not entirely excluded. The remaining brain parenchyma is within normal limits. There is no evidence for large hemorrhage, acute ischemia or mass. Ventricular size is within normal limits. Moderate mucosal thickening throughout the ethmoid air cells and sphenoid sinuses is noted. IMPRESSION: No acute intracranial process is appreciated. Chronic lacunar infarct in the right basal ganglia with adjacent linear hyperdensity which is unchanged since 02/05/17 exam.
[2017-04-30 14:17] LABS: Basophils % (Auto) 0.6 % (0.0-1.8); Eosinophils % (Auto) 2.6 % (0.0-4.3); Hematocrit 34.5 % (35.5-45.6); Mean Corpuscular HGB Conc 32 % (32-34); Mean Corpuscular Volume 74 fl (84-94); Platelet Count 268 K/mm3 (140-440); Red Blood Count 4.69 M/mm3 (3.65-5.03); Red Cell Distribution Width 14.6 % (13.2-15.2); White Blood Count 8.8 K/mm3 (4.5-11.0)
[2017-04-30 14:18] LABS: INR 0.95 (0.87-1.13); Partial Thromboplastin Time 31.4 Sec. (24.2-36.6)
[2017-04-30 14:22] LABS: Anion Gap 19 mmol/L; Blood Urea Nitrogen 19 mg/dL (9-20); Calcium 9.6 mg/dL (8.4-10.2); Carbon Dioxide 24 mmol/L (22-30); Chloride 105.4 mmol/L (98-107); Glucose 87 mg/dL (75-100); Potassium 4.1 mmol/L (3.6-5.0); Sodium 144 mmol/L (137-145)
[2017-04-30 14:33] LABS: Mean Corpuscular Hemoglobin 23 pg (28-32)
--- NOTE | 2017-04-30 14:46 | Emergency Department Report ---
HPI - General Chief Complaint: Weakness Time Seen by Provider: 04/30/17 14:32 - HPI HPI: 46-year-old [place] male presents to the emergency department via EMS from home with complaint of some lightheadedness and dizziness with some paresthesias down the left arm warning. Patient was concerned as he has history of previous CVA 2, insulin-dependent diabetes, hypertension, CHF, seizures. The patient also had a 6 month hospitalization in the past for a CVA followed by respiratory failure, tracheostomy and other complications. He denies any chest pain, shortness of breath, fever. He took his blood pressure medication and the rest of his medications this morning but did not take anything specifically to treat his symptoms. He does not have a primary care physician. He denies any tobacco or illicit drug use. Previous CVA left him with some left sided deficits worst in the lower extremities and he therefore does not walk. ED Past Medical Hx - Past Medical History Previous Medical History?: Yes Hx Hypertension: Yes Hx CVA: Yes Hx Heart Attack/AMI: No Hx Congestive Heart Failure: Yes Hx Diabetes: Yes Hx Deep Vein Thrombosis: No Hx Pulmonary Embolism: No Hx Liver Disease: No Hx Renal Disease: No Hx Sickle Cell Disease: No Hx Arthritis: No Hx Seizures: Yes Hx Kidney Stones: No Hx Asthma: No Hx COPD: No Hx Tuberculosis: No Hx Dementia: No Hx HIV: No Additional medical history: prior tracheotomy; ulcer buttock - Surgical History Hx Coronary Stent: No Hx Open Heart Surgery: No Hx Pacemaker: Yes (2015) Hx Internal Defibrillator: No Hx Cholecystectomy: No Hx Appendectomy: No Hx Breast Surgery: No - Social History Smoking Status: Never Smoker Substance Use Type: None - Medications Home Medications: Home Medications Medication Instructions Recorded Confirmed Last Taken Type Metoprolol [Lopressor TAB] 100 mg PO BID #60 tablet 02/07/17 Unknown Rx amLODIPine [Norvasc] 5 mg PO QDAY #30 tablet 02/07/17 Unknown Rx Hydralazine HCl [Apresoline TAB] 50 mg PO Q12H 04/30/17 04/30/17 04/30/17 History cloNIDine [Catapres] 0.1 mg PO Q8H 04/30/17 04/30/17 04/30/17 History ED Review of Systems ROS: Stated complaint: GENERAL WEAKNESS Other details as noted in HPI Comment: All other systems reviewed and negative Constitutional: weakness Eyes: denies: eye pain, eye discharge, vision change ENT: denies: ear pain, throat pain Respiratory: denies: cough, shortness of breath, wheezing Cardiovascular: denies: chest pain, palpitations Gastrointestinal: denies: abdominal pain, nausea, diarrhea Genitourinary: denies: urgency, dysuria Musculoskeletal: myalgia. denies: back pain Skin: denies: rash, lesions Neurological: paresthesias. denies: headache Physical Exam - Physical Exam Vital Signs: Vital Signs 04/30/17 13:13 Temperature 98.3 F Pulse Rate 79 Respiratory 20 Rate Blood Pressure 160/105 O2 Sat by Pulse 100 Oximetry Physical Exam: GENERAL: The patient is well-developed well-nourished. ENT: Normocephalic. Atraumatic. Patient has moist mucous membranes. EYES: Extraocular motions are intact. Pupils equal reactive to light bilaterally. No nystagmus. NECK: Supple. Trachea is mid line. CHEST/LUNGS: Clear to auscultation. There is no respiratory distress noted. HEART/CARDIOVASCULAR: Regular rhythm. Regular rate. There is no gallop rub or murmur. ABDOMEN: Abdomen is soft, nontender. Patient has normal bowel sounds. There is no abdominal distention. SKIN: Skin is warm and dry. NEURO: The patient is awake, alert, and oriented. The patient is cooperative. The patient has no acute sensory or motor deficits. Patient has chronic left lower extremity weakness. The patient has normal speech. MUSCULOSKELETAL: There is no tenderness or deformity. There is no evidence of acute injury. ED Course Vital Signs 04/30/17 13:13 Temperature 98.3 F Pulse Rate 79 Respiratory 20 Rate Blood Pressure 160/105 O2 Sat by Pulse 100 Oximetry ED Medical Decision Making - Lab Data Result diagrams: 04/30/17 13:50 04/30/17 13:50 - EKG Data -: EKG Interpreted by Ut EKG shows normal: sinus rhythm, axis (left axis deviation), intervals, QRS complexes (LVH), ST-T waves (T-wave inversions to the lateral leads) Rate: normal - EKG Data When compared to previous EKG there are: changes noted (there are new T-wave inversions to the lateral leads) Interpretation: other (sinus rhythm, LVH, T-wave inversions in the lateral leads ) 04/30/17 15:39 Repeat EKG was also read by myself and shows electronic atrial pacemaker, normal axis, T-wave inversions to the lateral leads. - Radiology Data Radiology results: report reviewed, image reviewed interpreted by me: Chest x-ray does not show any pleural effusion, obvious signs of pneumonia or any pneumothorax. No acute process noted. CT of the head shows no acute process. Chronic lacunar infarct in the right basal ganglia with adjacent linear hyperdensity which is unchanged since . - Medical Decision Making 46-year-old male presents to the emergency department with a complaint of some generalized weakness and dizziness. Part of his workup shows a elevated troponin. The patient has a history of elevated troponin but there is no renal insufficiency. He does not have any chest pain or shortness of breath. He does have a history of previous CVA with left-sided deficits. CT of the head without contrast does not show any acute intercranial process. However the patient will be admitted to the hospital for further evaluation for possible atypical CVA versus atypical ME versus other. He has been accepted for admission by the hospitalist, Dr neal. - Differential Diagnosis CVA, TIA, ME, arrhythmia Critical Care Time: No Critical care attestation.: If time is entered above; I have spent that time in minutes in the direct care of this critically ill patient, excluding procedure time. ED Disposition Clinical Impression: Elevated troponin I level, Weakness, Dizziness Hypertension Qualifiers: Hypertension type: essential hypertension Qualified Code(s): I10 - Essential ( primary) hypertension Disposition: OP ADMIT IP TO THIS HOSP Is pt being admited?: Yes Condition: Stable Time of Disposition: 16:17
[2017-04-30] MEDS ORDERED: BABY ASPIRIN PO ONE (15:11)
--- NOTE | 2017-04-30 15:14 | Admit Criteria Form ---
Admission Criteria Documentation: NEUROLOGY GRG Clinical Indications for Admission to Inpatient Care (Place ' X' for any and all applicable criteria): Hospital admission is needed for appropriate care of the patient because of 1 or more of the following: [ ]I. Encephalitis [ ]II. Severe NUCLEAR PHYSICIAN infections indicated by 1 or more of the following(1)(2)(3) : [ ]a) Intracranial abscess [ ]b) Spinal abscess or myelitis [ ]c) Tuberculous or other nonbacterial, nonviral NUCLEAR PHYSICIAN infection(8) [ ]III. Vasculitis and 1 or more of the following(14)(15): []a) Altered mental status that is severe or persistent or other acute neurologic change []b) Psychosis []c) Seizure [ ]IV. Status epilepticus or repetitive seizures not controlled with emergent treatment [A] (7)(8) [ ]V. Altered mental status that is severe or persistent [ ]. Transient alteration in consciousness with high-risk etiology; examples include (12)(13): [ ]a) Cardiovascular source [ ]b) Cataplexy [ ]VII. Cerebral aneurysm requiring ANY ONE of the following(14): [ ]a) IV antihypertensives or vasoactive agents [ ]b) Sedation and analgesia for suspected leak [ ]c) Need for external ventricular drainage and cerebral perfusion pressure monitoring [ ]d) Emergent evaluation to determine need for surgical clipping or endovascular coiling by interventional radiology. If surgery is required ( Also use Craniotomy, Supratentorial, for Surgery of Bleeding Intracranial Aneurysm (for bleeding aneurysm) or Craniotomy, Supratentorial (for nonbleeding aneurysm) as appropriate. [ ]VIII. New-onset severe neurologic symptom requiring inpatient care indicated by ANY ONE of the following: [ ]a) Aphasia(15) [ ]b) Weakness (grade 3 or less) [ ]c) Paralysis (eg, hemiplegia) [ ]d) Spasticity(16) [ ]e) Dystonia [ ]e) Ataxia(17) [ ]f) Amnesia(18) [ ]g) Involuntary movements(19) [ ]h) Vertigo [ ] Visual loss [ ]i) Other severe neurologic finding (eg, papilledema, mass effect on imaging, myoclonus not treatable at alternative level of care (eg, observation care) [ ]IX. Guillain-[place] syndrome(20) [ ]X. Myasthenia gravis crisis or inpatient monitoring need as indicated by 1 or more of the following(21): [ ]a) Intensive treatment (eg, course of plasmapheresis) with inadequate outpatient situation to monitor patients status [ ]b) Inadequate airway protection [ ]c) Respiratory insufficiency requiring intubation or inpatient. monitoring [ ]d) Progressive dysphagia with failure to thrive [ ]XI. Multiple sclerosis or other acute demyelinating disease requiring inpatient care as indicated by 1 or more of the following (22)(23): [ ]a) Acute severe deterioration requiring inpatient treatment (eg, IV steroids, plasmapheresis, close observation) [ ]b) Acute complication requiring inpatient care (eg, sepsis, severe decubitus, aspiration) [ ]XII.Parkinson disease requiring inpatient care (Also use Optimal Recovery Care Criteria or General Recovery Criteria as appropriate) indicated by 1 or more of the following(25): [ ]a) Infection (eg, aspiration pneumonia) not treatable at alternative level of care [ ]b Dehydration that is severe or persistent [ ]c) Life-threatening agitation or psychotic behavior not treatable on emergency, observation care, or alternative level (eg, residential) basis [ ]d) Severe medication withdrawal effects (eg, freezing, neuroleptic malignant syndrome) not responsive to emergency and observation care treatment ( as appropriate) [ ]e) Other severe manifestation not treatable at alternative level of care [ ]XII. Amyotrophic lateral sclerosis with inpatient care needs as indicated by ANY ONE of the following(26): [ ]a) Acute complications (eg, aspiration pneumonia, sepsis ) requiring inpatient care ( see other optimal Recovery Guideline as appropriate) [ ]b) Dehydration that is severe persistent AND artificial support desired [ ]c) Inadequate airway protection AND artificial support desired [ ]d) Severe ventilatory insufficiency AND artificial support desired [ ]XIII. Myasthenia gravis crisis or inpatient monitoring need as indicated by 1 or more of the following(21): [] a) Inadequate airway protection []b) Respiratory insufficiency requiring intubation or inpatient monitoring []c) Progressive dysphagia with failure to thrive []d) Intensive treatment (e.g., course of plasmapheresis) with inadequate outpatient situation to monitor patients status [ ]XIV. Multiple sclerosis or other acute demyelinating disease requiring inpatient care indicated by 1 or more of the following[C](36)(43)(44)(45)(46): []a) Acute severe deterioration requiring inpatient treatment (eg, IV steroids, plasmapheresis, close observation) []b) Acute complication requiring inpatient care (eg, sepsis, severe decubitus, aspiration) [ ]XV. Intracranial hypertension (e.g., pseudotumor cerebri) requiring inpatient care (e.g., acute visual loss, inadequate oral intake) (47)(48)(49) [ ]XVI. Parkinson disease requiring inpatient care (Also use Optimal Recovery Care Criteria or General Recovery Criteria as appropriate) indicated by 1 or more of the following(25): [] a) Infection (e.g., aspiration pneumonia) not treatable at alternative level of care []b) Volume depletion not responsive to emergency and observation care treatment (as appropriate) []c) Life-threatening agitation or psychotic behavior not treatable on emergency, observation care, or alternative level (e.g., residential) basis []d) Severe medication withdrawal effects (e.g., freezing, neuroleptic malignant syndrome) not responsive to emergency and observation care treatment (as appropriate) []e) Other severe manifestation not treatable at alternative level of care [ ]XVII. Amyotrophic lateral sclerosis with inpatient care needs as indicated by1 or more of the following(42): []a) Acute complications (eg, aspiration pneumonia, sepsis) requiring inpatient care (see other Optimal Recovery Guideline or General Recovery Guideline as appropriate) []b) Dehydration that is severe or persistent AND artificial support desired []c) Inadequate airway protection AND artificial support desired []d) Severe ventilatory insufficiency AND artificial support desired [ ]XVIII. Severe myopathy, neuropathy, or other neuromuscular disease indicated by 1 or more of the following(42)(52)(53)(54): []a ) New-onset severe diffuse weakness (eg, strength 3/5 or less) []b) Severe dysphagia []c) Dyspnea at rest or with minimal exertion (new) []d) Inadequate airway protection []e) Inadequate ventilation indicated by 1 or more of the following : i) Partial pressure of carbon dioxide greater than 44 mm Hg ( 5.9 kPa) (new) ii) Reduced peak expiratory flow rate (new) iii) Vital capacity less than 50% of predicted (less than 15 mL/kg) iv) Peak inspiratory force less negative than -30 cm H2O (- 2942 Pa) [ ]XVII.Complications of congenital or degenerative disease (eg, infection, seizures, dehydration, injury) not responsive to emergency and observation care treatment (as appropriate ) [C](16)(29)(30) [ ]XVIII.Suspected or confirmed nerve or muscle toxic injury, including ANY ONE of the following: [ ]a) Rhabdomyolysis(31) i) Acute renal failure ii) Dehydration that is severe or persistent iii) Altered mental status that is severe or persistent iv) Electrolyte abnormality that remains after emergency or observation level care ( as appropriate) [ ]b) Botulism(32) [ ]c) Other severe toxin-induced sign or symptom [ ]XIX. Neurologic trauma requiring inpatient treatment (medical) indicated by ANY ONE of the following(33)(34): [ ]a) Vital signs or neurologic signs more frequently than every 4 hours [ ]b) Hyperosmolar therapy [ ]c) Respiratory monitoring [ ]d) Intracranial pressure monitoring and treatment [ ]e) Stabilization and immobilization device placement (eg, braces, body jacket) [ ]f) Intubation & mechanical ventilation for airway protection or therapeutic hyperventilation [ ]g) Other treatment or monitoring needed that requires inpatient level of care [ ]XX.Complications of neurologic devices (eg, ventricular shunt, neurostimulator) requiring 1 or more of the following(35)(36): [ ]a) IV antibiotics with monitoring while awaiting culture results [ ]b) Monitoring for hydrocephalus [X ]XXI. Neurology condition symptom, or finding for which emergency and observation care have failed or are not considered appropriate. See General Criteria: Observation Care ISC, General Admission Criteria GRG, or Pediatric General Admission Criteria GRG guideline as appropriate. The original [facility] [employer] content created by [facility] has been revised. The portions of the content which have been revised are identified through the use of italic text or in bold, and [facility] has neither reviewed nor approved the modified material. All other unmodified content is copyright [facility] Please see references footnoted in the original [facility] edition 2016 Admission Criteria Met: Yes
[2017-04-30 15:23] LABS: Cholesterol 191 mg/dL (50-199); HDL Cholesterol 54 mg/dL (40-59); LDL Cholesterol,Direct 109 mg/dL (50-130); Triglycerides 143 mg/dL (2-149)
--- NOTE | 2017-04-30 15:58 | XRay Report ---
PORTABLE CHEST INDICATION: Weakness. COMPARISON: 02/04/2017 FINDINGS: Portable, frontal chest radiograph demonstrates stable cardiomediastinal silhouette/slight cardiomegaly and left AICD with dual-chamber leads. Clear lungs. EKG leads. Stable bones. CONCLUSION: No acute chest process, stable. Thank you for the opportunity to participate in this patient's care.
[2017-04-30] MEDS ORDERED: NORMODYNE IV ONE (16:16)
[2017-04-30] MEDS ORDERED: BABY ASPIRIN ONE (17:15)
[2017-04-30] MEDS ORDERED: APRESOLINE IV ONE ×2 (17:16→18:04)
[2017-04-30] MEDS ORDERED: ZOFRAN IV PRN (19:47)
[2017-04-30] MEDS ORDERED: DULCOLAX PR PRN (19:47)
[2017-04-30] MEDS ORDERED: TYLENOL PO PRN (19:47)
[2017-04-30] MEDS ORDERED: MILK OF MAGNESIA PO PRN (19:47)
--- NOTE | 2017-04-30 19:47 | History and Physical Report ---
History of Present Illness Date of examination: 04/30/17 Date of admission: 04/30/17 16:17 Chief complaint: L side numbness in arm and Chest pain History of present illness: HPI 46-year-old [place] male presents to the emergency department via EMS from home with complaint of some lightheadedness and dizziness with some paresthesias down the left arm warning. Patient was concerned as he has history of previous CVA 2, insulin-dependent diabetes, hypertension, CHF, seizures. The patient also had a 6 month hospitalization in the past for a CVA followed by respiratory failure, tracheostomy and other complications. He denies any chest pain, shortness of breath, fever. He took his blood pressure medication and the rest of his medications this morning but did not take anything specifically to treat his symptoms. He does not have a primary care physician. He denies any tobacco or illicit drug use. Previous CVA left him with some left sided deficits worst in the lower extremities and he therefore does not walk. Past Medical History Previous Medical History?: Yes Hx Hypertension: Yes Hx CVA: Yes Hx Heart Attack/AMI: No Hx Congestive Heart Failure: Yes Hx Diabetes: Yes Hx Deep Vein Thrombosis: No Hx Pulmonary Embolism: No Hx Liver Disease: No Hx Renal Disease: No Hx Sickle Cell Disease: No Hx Arthritis: No Hx Seizures: Yes Hx Kidney Stones: No Hx Asthma: No Hx COPD: No Hx Tuberculosis: No Hx Dementia: No Hx HIV: No Additional medical history: prior tracheotomy; ulcer buttock - Surgical History Hx Pacemaker: Yes (2015) - Social History Smoking Status: Never Smoker Substance Use Type: None Fam Hx HTN - Medications Home Medications: Home Medications Medication Instructions Recorded Confirmed Last Taken Type Metoprolol [Lopressor TAB] 100 mg PO BID #60 tablet 02/07/17 Unknown Rx amLODIPine [Norvasc] 5 mg PO QDAY #30 tablet 02/07/17 Unknown Rx Hydralazine HCl [Apresoline TAB] 50 mg PO Q12H 04/30/17 04/30/17 04/30/17 History cloNIDine [Catapres] 0.1 mg PO Q8H 04/30/17 04/30/17 04/30/17 History Review of Systems Stated complaint: GENERAL WEAKNESS Other details as noted in HPI Comment: All other systems reviewed and negative Constitutional: weakness Eyes: denies: eye pain, eye discharge, vision change ENT: denies: ear pain, throat pain Respiratory: denies: cough, shortness of breath, wheezing Cardiovascular: denies: chest pain, palpitations Gastrointestinal: denies: abdominal pain, nausea, diarrhea Genitourinary: denies: urgency, dysuria Musculoskeletal: myalgia. denies: back pain Skin: denies: rash, lesions Neurological: paresthesias. denies: headache Medications and Allergies Allergies Allergy/AdvReac Type Severity Reaction Status Date / Time No Known Allergies Allergy Verified 04/30/17 13:13 Home Medications Medication Instructions Recorded Confirmed Last Taken Type Metoprolol [Lopressor TAB] 100 mg PO BID #60 tablet 02/07/17 04/30/17 04/30/17 Rx amLODIPine [Norvasc] 5 mg PO QDAY #30 tablet 02/07/17 04/30/17 04/29/17 Rx Hydralazine HCl [Apresoline TAB] 50 mg PO Q12H 04/30/17 04/30/17 04/30/17 History cloNIDine [Catapres] 0.1 mg PO Q8H 04/30/17 04/30/17 04/30/17 History Active Meds: Active Medications Heparin Sodium (Porcine) (Heparin) 5,000 unit SUB-Q Q8HR JOSE LUIS Exam - Constitutional Vitals: Temp Pulse Resp BP Pulse Ox 98.3 F 68 16 196/108 97 04/30/17 13:13 04/30/17 18:16 04/30/17 17:40 04/30/17 18:16 04/30/17 17:40 General appearance: Present: no acute distress, well-nourished - EENT Eyes: Present: PERRL ENT: hearing intact, clear oral mucosa - Neck Neck: Present: supple, normal ROM - Respiratory Respiratory effort: normal Respiratory: bilateral: CTA - Cardiovascular Heart Sounds: Present: S1 & S2. Absent: rub, click - Extremities Extremities: pulses symmetrical, No edema Peripheral Pulses: within normal limits - Abdominal General gastrointestinal: Present: soft, non-tender, non-distended, normal bowel sounds Male genitourinary: Present: normal - Integumentary Integumentary: Present: clear, warm, dry - Musculoskeletal Musculoskeletal: gait normal, strength equal bilaterally - Psychiatric Psychiatric: appropriate mood/affect, intact judgment & insight - Neurologic Neurologic: CNII-XII intact, moves all extremities Results - Labs CBC & Chem 7: 04/30/17 13:50 05/01/17 03:32 Labs: Laboratory Last Values WBC 8.8 K/mm3 (4.5-11.0) 04/30/17 13:50 RBC 4.69 M/mm3 (3.65-5.03) 04/30/17 13:50 Hgb 11.0 gm/dl (11.8-15.2) L 04/30/17 13:50 Hct 34.5 % (35.5-45.6) L 04/30/17 13:50 MCV 74 fl (84-94) L 04/30/17 13:50 MCH 23 pg (28-32) L 04/30/17 13:50 MCHC 32 % (32-34) 04/30/17 13:50 RDW 14.6 % (13.2-15.2) 04/30/17 13:50 Plt Count 268 K/mm3 (140-440) 04/30/17 13:50 Lymph % (Auto) 27.4 % (13.4-35.0) 04/30/17 13:50 [place] % (Auto) 10.0 % (0.0-7.3) H 04/30/17 13:50 Eos % (Auto) 2.6 % (0.0-4.3) 04/30/17 13:50 Baso % (Auto) 0.6 % (0.0-1.8) 04/30/17 13:50 Lymph # 2.4 K/mm3 (1.2-5.4) 04/30/17 13:50 [place] # 0.9 K/mm3 (0.0-0.8) H 04/30/17 13:50 Eos # 0.2 K/mm3 (0.0-0.4) 04/30/17 13:50 Baso # 0.1 K/mm3 (0.0-0.1) 04/30/17 13:50 Seg Neutrophils % 59.4 % (40.0-70.0) 04/30/17 13:50 Seg Neutrophils # 5.2 K/mm3 (1.8-7.7) 04/30/17 13:50 PT 13.2 Sec. (12.2-14.9) 04/30/17 13:50 INR 0.95 (0.87-1.13) 04/30/17 13:50 APTT 31.4 Sec. (24.2-36.6) 04/30/17 13:50 Thrombin Time 15.3 Sec. (15.1-19.6) 04/30/17 13:50 Sodium 144 mmol/L (137-145) 04/30/17 13:50 Potassium 4.1 mmol/L (3.6-5.0) 04/30/17 13:50 Chloride 105.4 mmol/L (98-107) 04/30/17 13:50 Carbon Dioxide 24 mmol/L (22-30) 04/30/17 13:50 Anion Gap 19 mmol/L 04/30/17 13:50 BUN 19 mg/dL (9-20) 04/30/17 13:50 Creatinine 1.0 mg/dL (0.8-1.5) 04/30/17 13:50 Estimated GFR > 60 ml/min 04/30/17 13:50 BUN/Creatinine Ratio 19.00 % 04/30/17 13:50 Glucose 87 mg/dL (75-100) 04/30/17 13:50 Calcium 9.6 mg/dL (8.4-10.2) 04/30/17 13:50 Troponin T 0.062 ng/mL (0.00-0.029) H 04/30/17 13:50 Triglycerides 143 mg/dL (2-149) 04/30/17 13:50 Cholesterol 191 mg/dL (50-199) 04/30/17 13:50 LDL Cholesterol Direct 109 mg/dL (50-130) 04/30/17 13:50 HDL Cholesterol 54 mg/dL (40-59) 04/30/17 13:50 Cholesterol/HDL Ratio 3.53 % 04/30/17 13:50 Short CBC 04/30/17 Range/Units 13:50 WBC 8.8 (4.5-11.0) K/mm3 Hgb 11.0 L (11.8-15.2) gm/dl Hct 34.5 L (35.5-45.6) % Plt Count 268 (140-440) K/mm3 BMP 04/30/17 05/01/17 13:50 03:32 Sodium 144 145 Potassium 4.1 3.7 Chloride 105.4 106.6 Carbon Dioxide 24 23 BUN 19 17 Creatinine 1.0 0.9 Glucose 87 88 Calcium 9.6 9.4 Cardiac Enzymes 04/30/17 04/30/17 Range/Units 13:50 19:57 Total Creatine Kinase 93 (55-170) units/L CK-MB (CK-2) 4.8 H (0.0-4.0) ng/mL Troponin T 0.062 H 0.061 H (0.00-0.029) ng/mL Liver Function 05/01/17 Range/Units 03:32 Total Bilirubin 0.30 (0.1-1.2) mg/dL AST 8 (5-40) units/L ALT 6 L (7-56) units/L Alkaline Phosphatase 55 (35-129) units/L Albumin 3.7 L (3.9-5) g/dL - Imaging and Cardiology EKG: report reviewed CT Scan - head: report reviewed Assessment and Plan Advance Directives: Yes (Full code) VTE prophylaxis?: Chemical Plan of care discussed with patient/family: Yes - Patient Problems (1) Elevated troponin Current Visit: Yes Status: Acute Plan to address problem: R/o ischemic injury to Heart Serial cardiac enzymes and Lexiscan in AM (2) Acute coronary syndrome Current Visit: Yes Status: Acute Plan to address problem: As above (3) Hypertension Current Visit: Yes Status: Chronic Qualifiers: Hypertension type: essential hypertension Qualified Code(s): I10 - Essential (primary) hypertension Plan to address problem: Cont Antihypertensives (4) DVT prophylaxis Current Visit: No Status: Acute Plan to address problem: Contt Lovenox 40 mg sq qd
[2017-04-30] MEDS ORDERED: APRESOLINE IV PRN (19:56)
[2017-04-30 20:50] LABS: Creatine Kinase MB 4.8 ng/mL (0.0-4.0)
[2017-04-30] MEDS: D5NS 1,000 ML IV SCH (22:17)
[2017-04-30] MEDS: COREG PO SCH (22:17)
[2017-04-30] MEDS: COZAAR PO SCH (22:18)
[2017-04-30] MEDS: PEPCID PO SCH (22:18)
[2017-04-30] MEDS: HEPARIN SUB-Q SCH (22:19)
[2017-05-01 04:39] LABS: Alanine Aminotransferase 6 units/L (7-56); Albumin 3.7 g/dL (3.9-5); Albumin/Globulin Ratio 1.1 %; Alkaline Phosphatase 55 units/L (35-129); Anion Gap 19 mmol/L; BUN/Creatinine Ratio 18.88; Blood Urea Nitrogen 17 mg/dL (9-20); Calcium 9.4 mg/dL (8.4-10.2); Carbon Dioxide 23 mmol/L (22-30); Chloride 106.6 mmol/L (98-107); Glucose 88 mg/dL (75-100); Potassium 3.7 mmol/L (3.6-5.0); Sodium 145 mmol/L (137-145); Total Protein 7.1 g/dL (6.3-8.2)
[2017-05-01] MEDS: HEPARIN SUB-Q SCH ×3 (05:40→22:21)
[2017-05-01] MEDS ORDERED: LEXISCAN IV ONE ×2 (10:04→10:06)
[2017-05-01] MEDS: COREG PO SCH ×2 (10:32→22:20)
[2017-05-01] MEDS: COZAAR PO SCH (13:14)
[2017-05-01] MEDS: PEPCID PO SCH ×2 (13:14→22:20)
--- NOTE | 2017-05-01 13:45 | Progress Note ---
Assessment and Plan - Patient Problems (1) Elevated troponin Current Visit: Yes Status: Acute Plan to address problem: R/o ischemic injury to Heart Serial cardiac enzymes and Lexiscan Lexiscan normal (2) Acute coronary syndrome Current Visit: Yes Status: Acute Plan to address problem: As above (3) Hypertension Current Visit: Yes Status: Chronic Qualifiers: Hypertension type: essential hypertension Qualified Code(s): I10 - Essential (primary) hypertension Plan to address problem: Cont Antihypertensives (4) Decubital ulcer Current Visit: Yes Status: Chronic Qualifiers: Pressure ulcer location: buttock Pressure ulcer stage: stage 2 Laterality : L Plan to address problem: Small ulcer [id number] (5) CVA (cerebral vascular accident) Current Visit: Yes Status: Chronic Qualifiers: CVA mechanism: thrombosis Precerebral and cerebral artery: middle cerebral artery Laterality of affected vessel: right Qualified Code(s): I63.311 - Cerebral infarction due to thrombosis of right middle cerebral artery Plan to address problem: Old CVA-Requesting PT/OT and SNF placement. (6) DVT prophylaxis Current Visit: No Status: Acute Plan to address problem: Contt Lovenox 40 mg sq qd (7) Discharge planning issues Current Visit: Yes Status: Acute Plan to address problem: Will arrange for Home health and discharge tomorrow Subjective Date of service: 05/01/17 Principal diagnosis: L chest pain And L side weakness Interval history: L side chest pain and numbness has decreased. Continues to be weak from the stroke he had 1 year ago on Auf 25th and was admitted to [facility] for about 6 months. Unable to walk and wants SNF Objective - Exam Narrative Exam: In No distress - Constitutional Vitals: Vital Signs - 12hr 05/01/17 05/01/17 05/01/17 03:35 04:00 05:39 Temperature 98.5 F Pulse Rate 98 H 70 Respiratory 18 20 Rate Blood Pressure 170/98 O2 Sat by Pulse 98 Oximetry 05/01/17 05/01/17 05/01/17 05:43 09:49 10:06 Temperature Pulse Rate 70 87 118 H Respiratory Rate Blood Pressure 170/98 146/90 143/78 O2 Sat by Pulse Oximetry 05/01/17 05/01/17 05/01/17 10:07 10:08 10:09 Temperature Pulse Rate 117 H 99 H 96 H Respiratory Rate Blood Pressure 143/81 142/86 153/88 O2 Sat by Pulse Oximetry 05/01/17 05/01/17 10:10 11:53 Temperature 97.9 F Pulse Rate 94 H 80 Respiratory 20 Rate Blood Pressure 152/82 166/101 O2 Sat by Pulse 99 Oximetry General appearance: Present: no acute distress, well-nourished - EENT Eyes: PERRL, EOM intact ENT: hearing intact, clear oral mucosa Ears: bilateral: normal - Neck Neck: supple, normal ROM - Respiratory Respiratory effort: normal Respiratory: bilateral: CTA - Breasts Breasts: deferred - Cardiovascular Heart rate: 76 Rhythm: regular Heart Sounds: Present: S1 & S2. Absent: gallop, rub Extremities: no ischemia, pulses intact, pulses symmetrical, No edema, normal color, Full ROM - Gastrointestinal General gastrointestinal: Present: soft, non-tender, non-distended, normal bowel sounds - Genitourinary Male genitourinary: normal - Integumentary Integumentary: clear, warm, dry - Musculoskeletal Musculoskeletal: 1, strength equal bilaterally - Neurologic Neurologic: focal deficits (l Hemiplegia -power 3/5), moves all extremities - Psychiatric Psychiatric: memory intact, appropriate mood/affect, intact judgment & insight - Allied health notes Allied health notes reviewed: nursing, PT, case management - Labs CBC & Chem 7: 04/30/17 13:50 05/01/17 03:32 Labs: Abnormal lab results 04/30/17 05/01/17 05/01/17 Range/Units 19:57 03:32 11:33 POC Glucose 149 H (70-105) ALT 6 L (7-56) units/L CK-MB (CK-2) 4.8 H (0.0-4.0) ng/mL CK-MB (CK-2) Rel Index 5.1 H (0-4) Troponin T 0.061 H (0.00-0.029) ng/mL Albumin 3.7 L (3.9-5) g/dL
[2017-05-01] MEDS ORDERED: NON-FORMULARY (Hydralazine Hcl [Apresoline Tab] 50 MG) PO SCH (14:15)
[2017-05-01] MEDS ORDERED: APRESOLINE PO SCH (14:30)
[2017-05-01] MEDS: D5NS 1,000 ML IV SCH (18:28)
[2017-05-01] MEDS: NORVASC PO SCH (18:39)
[2017-05-01] MEDS: APRESOLINE PO SCH (18:41)
[2017-05-01] MEDS: LOPRESSOR PO SCH (22:21)
[2017-05-01] MEDS: CATAPRES PO SCH (23:30)
--- NOTE | 2017-05-02 00:41 | Treadmill Report ---
INDICATION: Chest pain. ORDERING PHYSICIAN: Kerry Morris MD FINDINGS: There is no scintigraphic evidence of myocardial ischemia. There is evidence of a slight decrease in counts noted in the inferior wall on stress images likely due to diaphragmatic attenuation. The left ventricle is normal in size and systolic function. The left ventricular ejection fraction is measured at 56%. Normal wall motion and wall thickening is noted on gated imaging. CONCLUSION: Normal perfusion scan. JOB# [id number] KRISTINA/NTS
[2017-05-02] MEDS: APRESOLINE PO SCH ×2 (06:05→17:43)
[2017-05-02] MEDS: HEPARIN SUB-Q SCH ×3 (06:08→23:09)
[2017-05-02] MEDS: D5NS 1,000 ML IV SCH ×2 (06:17→22:03)
--- NOTE | 2017-05-02 09:10 | Discharge Summary ---
Providers - Providers Date of Admission: 04/30/17 16:17 Date of discharge: 05/05/17 Attending physician: SHWETA ANDERSON 05/01/17 11:35 Occupational Therapy Evaluate and Treat [CONS] Routine Comment: Reason For Exam: Eval and treat, weakness, r/o stroke Physical Therapy Evaluation and Treat [CONS] Routine Comment: Reason For Exam: weakness, stroke workup, Eval and treat 05/01/17 14:07 Consult to Case Management [CONS] Routine Services Needed at Discharge: Home Health Services Notified:: Case Management Consult to Wound/ET Nurse [CONS] Routine Reason For Exam: wound eval Primary care physician: [employer] Hospitalization Reason for admission: cp Condition: Stable Hospital course: 46-year-old Spanish male presented to the emergency department via EMS from home with complaint of some lightheadedness, dizziness with some paresthesias down the left arm warning and chest pain. Patient was concerned as he has history of previous CVA 2, insulin-dependent diabetes, hypertension, CHF, seizures. The patient also had a 6 month hospitalization in the past for a CVA followed by respiratory failure, tracheostomy and other complications. He denied any chest pain, shortness of breath, fever. He does not have a primary care physician. He denies any tobacco or illicit drug use. Previous CVA left him with some left sided deficits worst in the lower extremities and he therefore does not walk. Patient underwent ischemic workup with serial cardiac enzymes and Lexiscan normal. Etiology of chest pain is likely secondary to GERD. Patient requested for SNF placement however resources are limited. Case management informed him that his resources are limited due to the timeframe of his deficits. Case management gave resources for outpatient follow-up with PCP. Patient will be discharged home health. Dedicated discharge time 35 minutes. Disposition: DC-01 TO HOME OR SELFCARE Time spent for discharge: 35 - Discharge Diagnoses (1) GERD (gastroesophageal reflux disease) Status: Acute Qualifiers: Esophagitis presence: E (2) CVA (cerebral vascular accident) Status: Acute Qualifiers: CVA mechanism: C Precerebral and cerebral artery: P Laterality of affected vessel: L (3) Dizziness Status: Acute (4) CVA (cerebral vascular accident) Status: Chronic Qualifiers: CVA mechanism: thrombosis Precerebral and cerebral artery: middle cerebral artery Laterality of affected vessel: right Qualified Code(s): I63.311 - Cerebral infarction due to thrombosis of right middle cerebral artery (5) Hypertension Status: Chronic Qualifiers: Hypertension type: essential hypertension Qualified Code(s): I10 - Essential (primary) hypertension (6) Diabetes Status: Acute Qualifiers: Diabetes mellitus type: D Diabetes mellitus complication status: D Diabetes mellitus complication detail: D Diabetic retinopathy severity: D Proliferative retinopathy type: P Diabetes mellitus macular edema: D 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 Laterality: L Chronic kidney disease stage: C Core Measure Documentation - Palliative Care Palliative Care/ Comfort Measures: Not Applicable - Core Measures Any of the following diagnoses?: none Exam - Constitutional Vitals: Temp Pulse Resp BP Pulse Ox 98.8 F 66 20 169/96 98 05/02/17 04:00 05/02/17 06:05 05/02/17 04:00 05/02/17 06:05 05/02/17 04:00 General appearance: Present: no acute distress, well-nourished - EENT Eyes: Present: PERRL ENT: hearing intact, clear oral mucosa - Neck Neck: Present: supple, normal ROM - Respiratory Respiratory effort: normal Respiratory: bilateral: CTA - Cardiovascular Heart Sounds: Present: S1 & S2. Absent: rub, click - Extremities Extremities: pulses symmetrical, No edema Peripheral Pulses: within normal limits - Abdominal General gastrointestinal: Present: soft, non-tender, non-distended, normal bowel sounds Male genitourinary: Present: normal - Integumentary Integumentary: Present: clear, warm, dry - Musculoskeletal Musculoskeletal: gait normal, strength equal bilaterally - Psychiatric Psychiatric: appropriate mood/affect, intact judgment & insight - Neurologic Neurologic: CNII-XII intact, moves all extremities Plan Activity: no restrictions Weight Bearing Status: Weight Bear as Tolerated Special Instructions: home health RN Follow up with: PRIMARY CARE, [Primary Care Provider] - 3-5 Days Prescriptions: amLODIPine [Norvasc] 5 mg PO QDAY #30 tablet Carvedilol [Coreg] 12.5 mg PO BID #60 tablet cloNIDine [Catapres] 0.1 mg PO Q8H #90 tablet Famotidine [Pepcid] 20 mg PO BID #60 tablet Hydralazine HCl [Apresoline TAB] 50 mg PO Q12H #60 tablet Losartan [Cozaar] 100 mg PO QDAY #30 tablet Metoprolol [Lopressor TAB] 100 mg PO BID #60 tablet
[2017-05-02] MEDS: COZAAR PO SCH (10:37)
[2017-05-02] MEDS: NORVASC PO SCH (10:37)
[2017-05-02] MEDS: COREG PO SCH ×2 (10:38→22:04)
[2017-05-02] MEDS: PEPCID PO SCH ×2 (10:38→22:08)
[2017-05-02] MEDS: LOPRESSOR PO SCH ×3 (10:38→22:05)
[2017-05-02] MEDS: CATAPRES PO SCH ×5 (10:42→22:04)
[2017-05-03] MEDS: APRESOLINE PO SCH ×2 (06:27→17:35)
[2017-05-03] MEDS: HEPARIN SUB-Q SCH ×3 (07:34→22:42)
[2017-05-03] MEDS: CATAPRES PO SCH ×2 (09:22→14:12)
[2017-05-03] MEDS: COZAAR PO SCH (09:22)
[2017-05-03] MEDS: PEPCID PO SCH ×2 (09:23→22:41)
[2017-05-03] MEDS: COREG PO SCH ×2 (09:23→22:41)
[2017-05-03] MEDS: LOPRESSOR PO SCH ×2 (09:24→22:42)
--- NOTE | 2017-05-03 10:10 | Progress Note ---
Assessment and Plan Assessment and Plan - Patient Problems (1) Elevated troponin Current Visit: Yes Status: Acute Plan to address problem: R/o ischemic injury to Heart Serial cardiac enzymes and Lexiscan Lexiscan normal (2) Acute coronary syndrome Current Visit: Yes Status: Acute Plan to address problem: As above (3) Hypertension Current Visit: Yes Status: Chronic Qualifiers: Hypertension type: essential hypertension Qualified Code(s): I10 - Essential (primary) hypertension Plan to address problem: Cont Antihypertensives (4) Decubital ulcer Current Visit: Yes Status: Chronic Qualifiers: Pressure ulcer location: buttock Pressure ulcer stage: stage 2 Laterality : L Plan to address problem: Small ulcer [id number] (5) CVA (cerebral vascular accident) Current Visit: Yes Status: Chronic Qualifiers: CVA mechanism: thrombosis Precerebral and cerebral artery: middle cerebral artery Laterality of affected vessel: right Qualified Code(s): I63.311 - Cerebral infarction due to thrombosis of right middle cerebral artery Plan to address problem: Old CVA-Requesting PT/OT and SNF placement. (6) DVT prophylaxis Current Visit: No Status: Acute Plan to address problem: Contt Lovenox 40 mg sq qd (7) Discharge planning issues Current Visit: Yes Status: Acute Plan to address problem: Will arrange for Home health and discharge tomorrow - Patient Problems (1) GERD (gastroesophageal reflux disease) Current Visit: Yes Status: Acute Qualifiers: Esophagitis presence: E (2) CVA (cerebral vascular accident) Current Visit: Yes Status: Acute Qualifiers: CVA mechanism: C Precerebral and cerebral artery: P Laterality of affected vessel: L (3) Dizziness Current Visit: Yes Status: Acute (4) CVA (cerebral vascular accident) Current Visit: Yes Status: Chronic Qualifiers: CVA mechanism: thrombosis Precerebral and cerebral artery: middle cerebral artery Laterality of affected vessel: right Qualified Code(s): I63.311 - Cerebral infarction due to thrombosis of right middle cerebral artery (5) Hypertension Current Visit: Yes Status: Chronic Qualifiers: Hypertension type: essential hypertension Qualified Code(s): I10 - Essential (primary) hypertension (6) Diabetes Current Visit: No Status: Acute Qualifiers: Diabetes mellitus type: D Diabetes mellitus complication status: D Diabetes mellitus complication detail: D Diabetic retinopathy severity: D Proliferative retinopathy type: P Diabetes mellitus macular edema: D Diabetes mellitus correction insulin use: D Laterality: L Chronic kidney disease stage: C Subjective Date of service: 05/02/17 Principal diagnosis: L chest pain And L side weakness Interval history: No new issues overnight. Objective - Constitutional Vitals: Vital Signs - 12hr 05/03/17 05/03/17 05/03/17 00:00 08:20 09:22 Temperature 98.8 F 98.6 F Pulse Rate 72 64 64 Respiratory 18 20 Rate Blood Pressure 136/86 152/98 152/98 O2 Sat by Pulse 97 99 Oximetry 05/03/17 05/03/17 09:23 09:24 Temperature Pulse Rate 64 64 Respiratory Rate Blood Pressure 152/98 152/98 O2 Sat by Pulse Oximetry General appearance: Present: no acute distress, well-nourished - EENT Eyes: PERRL, EOM intact ENT: hearing intact, clear oral mucosa Ears: bilateral: normal - Neck Neck: supple, normal ROM - Respiratory Respiratory effort: normal Respiratory: bilateral: CTA - Breasts Breasts: normal - Cardiovascular Rhythm: regular Heart Sounds: Present: S1 & S2. Absent: gallop, rub Extremities: pulses intact, No edema, normal color, Full ROM - Gastrointestinal General gastrointestinal: Present: soft, non-tender, non-distended, normal bowel sounds - Genitourinary Male genitourinary: normal - Integumentary Integumentary: clear, warm, dry - Musculoskeletal Musculoskeletal: 1, strength equal bilaterally - Neurologic Neurologic: moves all extremities - Psychiatric Psychiatric: memory intact, appropriate mood/affect, intact judgment & insight - Labs CBC & Chem 7: 04/30/17 13:50 05/01/17 03:32 Labs: Abnormal lab results 05/02/17 05/02/17 05/02/17 Range/Units 11:18 16:37 21:58 POC Glucose 148 H 127 H 137 H (70-105)
--- NOTE | 2017-05-03 10:13 | Progress Note ---
Assessment and Plan Assessment and plan: Assessment and Plan - Patient Problems (1) Elevated troponin Current Visit: Yes Status: Acute Plan to address problem: Serial cardiac enzymes and Lexiscan normal (2) Acute coronary syndrome Current Visit: Yes Status: Acute Plan to address problem: As above (3) Hypertension Current Visit: Yes Status: Chronic Qualifiers: Hypertension type: essential hypertension Qualified Code(s): I10 - Essential (primary) hypertension Plan to address problem: Cont Antihypertensives (4) Decubital ulcer Current Visit: Yes Status: Chronic Qualifiers: Pressure ulcer location: buttock Pressure ulcer stage: stage 2 Laterality : L Plan to address problem: Small ulcer [id number] (5) CVA (cerebral vascular accident) Current Visit: Yes Status: Chronic Qualifiers: CVA mechanism: thrombosis Precerebral and cerebral artery: middle cerebral artery Laterality of affected vessel: right Qualified Code(s): I63.311 - Cerebral infarction due to thrombosis of right middle cerebral artery Plan to address problem: Old CVA-Requesting PT/OT and SNF placement. Left-sided numbness is residual paresthesias from old CVA (6) DVT prophylaxis Current Visit: No Status: Acute Plan to address problem: Contt Lovenox 40 mg sq qd (7) Discharge planning issues Current Visit: Yes Status: Acute Plan to address problem: Physical therapy evaluation recommended subacute rehabilitation. Case management to arrange for SNF. - Patient Problems (1) GERD (gastroesophageal reflux disease) Current Visit: Yes Status: Acute Qualifiers: Esophagitis presence: E (2) CVA (cerebral vascular accident) Current Visit: Yes Status: Acute Qualifiers: CVA mechanism: C Precerebral and cerebral artery: P Laterality of affected vessel: L (3) Dizziness Current Visit: Yes Status: Acute (4) CVA (cerebral vascular accident) Current Visit: Yes Status: Chronic Qualifiers: CVA mechanism: thrombosis Precerebral and cerebral artery: middle cerebral artery Laterality of affected vessel: right Qualified Code(s): I63.311 - Cerebral infarction due to thrombosis of right middle cerebral artery (5) Hypertension Current Visit: Yes Status: Chronic Qualifiers: Hypertension type: essential hypertension Qualified Code(s): I10 - Essential (primary) hypertension (6) Diabetes Current Visit: No Status: Acute Qualifiers: Diabetes mellitus type: D Diabetes mellitus complication status: D Diabetes mellitus complication detail: D Diabetic retinopathy severity: D Proliferative retinopathy type: P Diabetes mellitus macular edema: D 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 Hospitalist Physical - Constitutional Vitals: Temp Pulse Resp BP Pulse Ox 98.6 F 64 20 152/98 99 05/03/17 08:20 05/03/17 09:24 05/03/17 08:20 05/03/17 09:24 05/03/17 08:20 General appearance: Present: no acute distress, well-nourished - EENT Eyes: Present: PERRL, EOM intact ENT: hearing intact, clear oral mucosa, dentition normal - Neck Neck: Present: supple, normal ROM - Respiratory Respiratory effort: normal Respiratory: bilateral: CTA - Cardiovascular Rhythm: regular Heart Sounds: Present: S1 & S2. Absent: gallop, rub - Extremities Extremities: no ischemia, No edema, Full ROM - Abdominal General gastrointestinal: soft, non-tender, non-distended, normal bowel sounds - Integumentary Integumentary: Present: clear, warm, dry - Neurologic Neurologic: CNII-XII intact, moves all extremities Results - Labs CBC & Chem 7: 04/30/17 13:50 05/01/17 03:32 Labs: Laboratory Last Values WBC 8.8 K/mm3 (4.5-11.0) 04/30/17 13:50 RBC 4.69 M/mm3 (3.65-5.03) 04/30/17 13:50 Hgb 11.0 gm/dl (11.8-15.2) L 04/30/17 13:50 Hct 34.5 % (35.5-45.6) L 04/30/17 13:50 MCV 74 fl (84-94) L 04/30/17 13:50 MCH 23 pg (28-32) L 04/30/17 13:50 MCHC 32 % (32-34) 04/30/17 13:50 RDW 14.6 % (13.2-15.2) 04/30/17 13:50 Plt Count 268 K/mm3 (140-440) 04/30/17 13:50 Lymph % (Auto) 27.4 % (13.4-35.0) 04/30/17 13:50 [place] % (Auto) 10.0 % (0.0-7.3) H 04/30/17 13:50 Eos % (Auto) 2.6 % (0.0-4.3) 04/30/17 13:50 Baso % (Auto) 0.6 % (0.0-1.8) 04/30/17 13:50 Lymph # 2.4 K/mm3 (1.2-5.4) 04/30/17 13:50 [place] # 0.9 K/mm3 (0.0-0.8) H 04/30/17 13:50 Eos # 0.2 K/mm3 (0.0-0.4) 04/30/17 13:50 Baso # 0.1 K/mm3 (0.0-0.1) 04/30/17 13:50 Seg Neutrophils % 59.4 % (40.0-70.0) 04/30/17 13:50 Seg Neutrophils # 5.2 K/mm3 (1.8-7.7) 04/30/17 13:50 PT 13.2 Sec. (12.2-14.9) 04/30/17 13:50 INR 0.95 (0.87-1.13) 04/30/17 13:50 APTT 31.4 Sec. (24.2-36.6) 04/30/17 13:50 Thrombin Time 15.3 Sec. (15.1-19.6) 04/30/17 13:50 Sodium 145 mmol/L (137-145) 05/01/17 03:32 Potassium 3.7 mmol/L (3.6-5.0) 05/01/17 03:32 Chloride 106.6 mmol/L (98-107) 05/01/17 03:32 Carbon Dioxide 23 mmol/L (22-30) 05/01/17 03:32 Anion Gap 19 mmol/L 05/01/17 03:32 BUN 17 mg/dL (9-20) 05/01/17 03:32 Creatinine 0.9 mg/dL (0.8-1.5) 05/01/17 03:32 Estimated GFR > 60 ml/min 05/01/17 03:32 BUN/Creatinine Ratio 18.88 % 05/01/17 03:32 Glucose 88 mg/dL (75-100) 05/01/17 03:32 POC Glucose 85 (70-105) 05/03/17 07:26 Calcium 9.4 mg/dL (8.4-10.2) 05/01/17 03:32 Total Bilirubin 0.30 mg/dL (0.1-1.2) 05/01/17 03:32 AST 8 units/L (5-40) 05/01/17 03:32 ALT 6 units/L (7-56) L 05/01/17 03:32 Alkaline Phosphatase 55 units/L (35-129) 05/01/17 03:32 Total Creatine Kinase 93 units/L (55-170) 04/30/17 19:57 CK-MB (CK-2) 4.8 ng/mL (0.0-4.0) H 04/30/17 19:57 CK-MB (CK-2) Rel Index 5.1 (0-4) H 04/30/17 19:57 Troponin T 0.061 ng/mL (0.00-0.029) H 04/30/17 19:57 Total Protein 7.1 g/dL (6.3-8.2) 05/01/17 03:32 Albumin 3.7 g/dL (3.9-5) L 05/01/17 03:32 Albumin/Globulin Ratio 1.1 % 05/01/17 03:32 Triglycerides 143 mg/dL (2-149) 04/30/17 13:50 Cholesterol 191 mg/dL (50-199) 04/30/17 13:50 LDL Cholesterol Direct 109 mg/dL (50-130) 04/30/17 13:50 HDL Cholesterol 54 mg/dL (40-59) 04/30/17 13:50 Cholesterol/HDL Ratio 3.53 % 04/30/17 13:50
[2017-05-03] MEDS: D5NS 1,000 ML IV SCH (10:36)
[2017-05-03] MEDS: NORVASC PO SCH (11:21)
[2017-05-04] MEDS: D5NS 1,000 ML IV SCH ×2 (01:44→20:49)
[2017-05-04] MEDS: CATAPRES PO SCH ×4 (01:44→23:00)
[2017-05-04] MEDS: HEPARIN SUB-Q SCH ×3 (06:24→22:20)
[2017-05-04] MEDS: APRESOLINE PO SCH ×2 (06:24→18:11)
[2017-05-04] MEDS: PEPCID PO SCH ×2 (11:16→22:18)
[2017-05-04] MEDS: COREG PO SCH ×2 (11:17→22:18)
[2017-05-04] MEDS: COZAAR PO SCH (11:17)
[2017-05-04] MEDS: NORVASC PO SCH (11:18)
[2017-05-04] MEDS: LOPRESSOR PO SCH ×2 (11:18→22:19)
[2017-05-05] MEDS: APRESOLINE PO SCH (05:48)
[2017-05-05] MEDS: HEPARIN SUB-Q SCH ×2 (05:49→15:06)
[2017-05-05] MEDS: D5NS 1,000 ML IV SCH (05:51)
--- NOTE | 2017-05-05 07:33 | Progress Note ---
Assessment and Plan Assessment and Plan - Patient Problems (1) Elevated troponin Current Visit: Yes Status: Acute Plan to address problem: Serial cardiac enzymes and Lexiscan normal (2) Acute coronary syndrome Current Visit: Yes Status: Acute Plan to address problem: As above (3) Hypertension Current Visit: Yes Status: Chronic Qualifiers: Hypertension type: essential hypertension Qualified Code(s): I10 - Essential (primary) hypertension Plan to address problem: Cont Antihypertensives (4) Decubital ulcer Current Visit: Yes Status: Chronic Qualifiers: Pressure ulcer location: buttock Pressure ulcer stage: stage 2 Laterality : L Plan to address problem: Small ulcer [id number] (5) CVA (cerebral vascular accident) Current Visit: Yes Status: Chronic Qualifiers: CVA mechanism: thrombosis Precerebral and cerebral artery: middle cerebral artery Laterality of affected vessel: right Qualified Code(s): I63.311 - Cerebral infarction due to thrombosis of right middle cerebral artery Plan to address problem: Old CVA-Requesting PT/OT and SNF placement. Left-sided numbness is residual paresthesias from old CVA (6) DVT prophylaxis Current Visit: No Status: Acute Plan to address problem: Contt Lovenox 40 mg sq qd (7) Discharge planning issues Current Visit: Yes Status: Acute Plan to address problem: Physical therapy evaluation recommended subacute rehabilitation. Case management to arrange for SNF. - Patient Problems (1) GERD (gastroesophageal reflux disease) Current Visit: Yes Status: Acute Qualifiers: Esophagitis presence: E (2) CVA (cerebral vascular accident) Current Visit: Yes Status: Acute Qualifiers: CVA mechanism: C Precerebral and cerebral artery: P Laterality of affected vessel: L (3) Dizziness Current Visit: Yes Status: Acute (4) CVA (cerebral vascular accident) Current Visit: Yes Status: Chronic Qualifiers: CVA mechanism: thrombosis Precerebral and cerebral artery: middle cerebral artery Laterality of affected vessel: right Qualified Code(s): I63.311 - Cerebral infarction due to thrombosis of right middle cerebral artery (5) Hypertension Current Visit: Yes Status: Chronic Qualifiers: Hypertension type: essential hypertension Qualified Code(s): I10 - Essential (primary) hypertension (6) Diabetes Current Visit: No Status: Acute Qualifiers: Diabetes mellitus type: D Diabetes mellitus complication status: D Diabetes mellitus complication detail: D Diabetic retinopathy severity: D Proliferative retinopathy type: P Diabetes mellitus macular edema: D 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 Objective - Constitutional Vitals: Vital Signs - 12hr 05/04/17 05/04/17 05/04/17 22:00 22:18 22:19 Temperature Pulse Rate 66 66 Respiratory 18 Rate Respiratory 18 Rate [Left Ankle] Respiratory 18 Rate [Sacrum] Blood Pressure 150/90 150/90 O2 Sat by Pulse Oximetry 05/04/17 05/05/17 05/05/17 23:00 00:00 05:48 Temperature 97.9 F Pulse Rate 67 71 63 Respiratory 18 Rate Respiratory Rate [Left Ankle] Respiratory Rate [Sacrum] Blood Pressure 168/93 134/83 123/60 O2 Sat by Pulse 99 Oximetry General appearance: Present: no acute distress, well-nourished - EENT Eyes: PERRL, EOM intact ENT: hearing intact, clear oral mucosa Ears: bilateral: normal - Neck Neck: supple, normal ROM - Respiratory Respiratory effort: normal Respiratory: bilateral: CTA - Breasts Breasts: normal - Cardiovascular Rhythm: regular Heart Sounds: Present: S1 & S2. Absent: gallop, rub Extremities: pulses intact, No edema, normal color, Full ROM - Gastrointestinal General gastrointestinal: Present: soft, non-tender, non-distended, normal bowel sounds - Genitourinary Male genitourinary: normal - Integumentary Integumentary: clear, warm, dry - Musculoskeletal Musculoskeletal: 1, strength equal bilaterally - Neurologic Neurologic: moves all extremities - Psychiatric Psychiatric: memory intact, appropriate mood/affect, intact judgment & insight - Labs CBC & Chem 7: 04/30/17 13:50 05/01/17 03:32
[2017-05-05] MEDS: CATAPRES PO SCH ×2 (08:54→15:06)
--- NOTE | 2017-05-05 09:14 | Progress Note ---
Assessment and Plan Assessment and Plan - Patient Problems (1) Elevated troponin Current Visit: Yes Status: Acute Plan to address problem: Serial cardiac enzymes and Lexiscan normal (2) Acute coronary syndrome Current Visit: Yes Status: Acute Plan to address problem: As above (3) Hypertension Current Visit: Yes Status: Chronic Qualifiers: Hypertension type: essential hypertension Qualified Code(s): I10 - Essential (primary) hypertension Plan to address problem: Cont Antihypertensives (4) Decubital ulcer Current Visit: Yes Status: Chronic Qualifiers: Pressure ulcer location: buttock Pressure ulcer stage: stage 2 Laterality : L Plan to address problem: Small ulcer [id number] (5) CVA (cerebral vascular accident) Current Visit: Yes Status: Chronic Qualifiers: CVA mechanism: thrombosis Precerebral and cerebral artery: middle cerebral artery Laterality of affected vessel: right Qualified Code(s): I63.311 - Cerebral infarction due to thrombosis of right middle cerebral artery Plan to address problem: Old CVA-Requesting PT/OT and SNF placement. Left-sided numbness is residual paresthesias from old CVA (6) DVT prophylaxis Current Visit: No Status: Acute Plan to address problem: Contt Lovenox 40 mg sq qd (7) Discharge planning issues Current Visit: Yes Status: Acute Plan to address problem: Physical therapy evaluation recommended subacute rehabilitation. Case management to arrange for SNF. - Patient Problems (1) GERD (gastroesophageal reflux disease) Current Visit: Yes Status: Acute Qualifiers: Esophagitis presence: E (2) CVA (cerebral vascular accident) Current Visit: Yes Status: Acute Qualifiers: CVA mechanism: C Precerebral and cerebral artery: P Laterality of affected vessel: L (3) Dizziness Current Visit: Yes Status: Acute (4) CVA (cerebral vascular accident) Current Visit: Yes Status: Chronic Qualifiers: CVA mechanism: thrombosis Precerebral and cerebral artery: middle cerebral artery Laterality of affected vessel: right Qualified Code(s): I63.311 - Cerebral infarction due to thrombosis of right middle cerebral artery (5) Hypertension Current Visit: Yes Status: Chronic Qualifiers: Hypertension type: essential hypertension Qualified Code(s): I10 - Essential (primary) hypertension (6) Diabetes Current Visit: No Status: Acute Qualifiers: Diabetes mellitus type: D Diabetes mellitus complication status: D Diabetes mellitus complication detail: D Diabetic retinopathy severity: D Proliferative retinopathy type: P Diabetes mellitus macular edema: D 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 Objective - Constitutional Vitals: Vital Signs - 12hr 05/04/17 05/04/17 05/04/17 22:00 22:18 22:19 Temperature Pulse Rate 66 66 Respiratory 18 Rate Respiratory 18 Rate [Left Ankle] Respiratory 18 Rate [Sacrum] Blood Pressure 150/90 150/90 O2 Sat by Pulse Oximetry 05/04/17 05/05/17 05/05/17 23:00 00:00 05:48 Temperature 97.9 F Pulse Rate 67 71 63 Respiratory 18 Rate Respiratory Rate [Left Ankle] Respiratory Rate [Sacrum] Blood Pressure 168/93 134/83 123/60 O2 Sat by Pulse 99 Oximetry 05/05/17 05/05/17 07:25 08:54 Temperature 98.1 F Pulse Rate 65 65 Respiratory 16 Rate Respiratory Rate [Left Ankle] Respiratory Rate [Sacrum] Blood Pressure 134/81 134/87 O2 Sat by Pulse 100 Oximetry General appearance: Present: no acute distress, well-nourished - EENT Eyes: PERRL, EOM intact ENT: hearing intact, clear oral mucosa Ears: bilateral: normal - Neck Neck: supple, normal ROM - Respiratory Respiratory effort: normal Respiratory: bilateral: CTA - Breasts Breasts: normal - Cardiovascular Rhythm: regular Heart Sounds: Present: S1 & S2. Absent: gallop, rub Extremities: pulses intact, No edema, normal color, Full ROM - Gastrointestinal General gastrointestinal: Present: soft, non-tender, non-distended, normal bowel sounds - Genitourinary Male genitourinary: normal - Integumentary Integumentary: clear, warm, dry - Musculoskeletal Musculoskeletal: 1, strength equal bilaterally - Neurologic Neurologic: moves all extremities - Psychiatric Psychiatric: memory intact, appropriate mood/affect, intact judgment & insight - Labs CBC & Chem 7: 04/30/17 13:50 05/01/17 03:32
[2017-05-05] MEDS: COREG PO SCH (11:48)
[2017-05-05] MEDS: LOPRESSOR PO SCH (11:49)
[2017-05-05] MEDS: PEPCID PO SCH (11:50)
[2017-05-05] MEDS: NORVASC PO SCH (11:50)
[2017-05-05] MEDS: COZAAR PO SCH (11:51)
[2017-05-05 15:07] VITALS: BP 121/75
== END 2017-05-05 16:35 | disposition home health service (06) | DRG 392 ==
LOC: ED 12:23 → 4A 16:17 → 3A 05-01 17:09
PROVIDERS: ADMIT Internal Medicine; ATTEND Hospitalist
DX: K21.9 Gastro-esophageal reflux disease without esophagitis (principal); I24.9 Acute ischemic heart disease, unspecified; L89.322 Pressure ulcer of left buttock, stage 2; E11.8 Type 2 diabetes mellitus with unspecified complications; I11.0 Hypertensive heart disease with heart failure; I50.9 Heart failure, unspecified; Z86.73 Personal history of transient ischemic attack (TIA), and cerebral infarction without residual deficits; Z79.4 Long term (current) use of insulin; Z95.0 Presence of cardiac pacemaker; Z79.899 Other long term (current) drug therapy
CPT/HCPCS: 36415; 70450; 71010; 78452; 80048; 80053; 80061; 82550; 82553; 82962; 84484; 85025; 85610; 85670; 85730; 93005; 93010; 93017; 96374; 96375; A9502; J0360; J1644; J2785; J7042

== ENCOUNTER 2018-07-07 11:15 | Outpatient (CLI) | payer MEDICAID | END 2018-07-07 11:16 | disposition home or self-care (01) | LOC: VAS 11:15 | PROVIDERS: ATTEND Internal Medicine | DX: M79.89 Other specified soft tissue disorders (principal); I10 Essential (primary) hypertension; E11.9 Type 2 diabetes mellitus without complications; K21.9 Gastro-esophageal reflux disease without esophagitis; Z87.891 Personal history of nicotine dependence ==